=== PATIENT | male | born 1935 | race American Indian/Alaskan Native ===

== ENCOUNTER 2021-12-08 09:04 | Emergency (ER) | payer MEDICARE, OTHER ==
[~2021-12-08] VITALS: Ht 185.4 cm; Wt 89.4 kg
[~2021-12-08 09:04] MED LIST: ASPIRIN EC81 MG PO; LIPITOR40 MG PO; METOPROLOL SUCC50 MG PO; NORCO 5-325 TA1 EACH PO
[2021-12-08] MEDS ORDERED: MELOXICAM5 MG PO (09:24)
[2021-12-08] MEDS ORDERED: ATHLETIC FOOT C30 GM TOP (09:53)
== END 2021-12-08 10:07 | disposition home or self-care (01) ==
LOC: ED 09:04
DX: B35.3 Tinea pedis (principal); I10 Essential (primary) hypertension; Z79.82 Long term (current) use of aspirin; Z79.899 Other long term (current) drug therapy
CPT/HCPCS: 99282

== ENCOUNTER 2023-01-11 14:13 | Emergency (ER) | payer MEDICARE, OTHER ==
[~2023-01-11] VITALS: Ht 185.4 cm; Wt 89.4 kg
[~2023-01-11 14:13] MED LIST changes: +ATHLETIC FOOT C30 GM TOP; +MELOXICAM5 MG PO
[2023-01-11 14:42] LABS: BASOPHILS 0.1 % (0-2); EOSINOPHILS 0.7 % (0-6); HEMOGLOBIN 14.8 g/dL (12.0-18.0); LYMPHOCYTES 11.8 % (24-44); MCH 27.5 (27-36); MCHC 32.9 g/dl (30-36); MCV 83.6 fl (81-99); MONOCYTES 1.4 % (0-12); PLATELET COUNT 137 K/uL (140-440); RBC 5.38 M/ul (4.3-5.7); RDW 14.6 (10.5-15.0)
[2023-01-11 14:57] LABS: ALBUMIN 3.4 g/dL (3.4-5.0); ALBUMIN/GLOBULIN RATIO 0.92 (1.1-2.4); BILIRUBIN, TOTAL 1.9 ng/dL (0.2-1.0); BUN/CREATININE RATIO 18.85 (6.0-28.6); CALCIUM 9.1 mg/dL (8.5-10.1); CREATININE, SERUM 1.22 mg/dL (0.70-1.30); PROTEIN, TOTAL 7.1 g/dL (6.4-8.2)
[2023-01-11 15:05] LABS: LACTIC ACID, BLOOD 2.9 mmol/L (0.4-2.0)
[2023-01-11 15:09] LABS: BILIRUBIN, URINE NEGATIVE (negative); BLOOD/HGB, URINE SMALL (Negative); KETONE, URINE NEGATIVE (Negative); LEUK ESTERASE, URINE NEGATIVE (negative); NITRITE, URINE NEGATIVE (negative)
[2023-01-11] MEDS ORDERED: ENTRESTO 24 MG1 EACH PO (15:11)
[2023-01-11 15:17] LABS: BACTERIA, URINE RARE /hpf (negative); CRYSTALS, URINE NONE SEEN (0-1+); EPITHELIAL CELLS, URINE SQUAMOUS 1+ /lpf (0-1+); WHITE BLOOD CELLS, URINE 0-1 /HPF (0-5)
[2023-01-11 15:18] LABS: CASTS, URINE NONE SEEN \\lpf; COLLECTION TYPE, URINE CLEAN CATCH; REFLEX CULTURE, URINE No (No)
[2023-01-11 15:21] LABS: INFLUENZA B NAA NEGATIVE (NEGATIVE); RESPIRATORY SYNCYTIAL VIR NAA NEGATIVE (NEGATIVE)
[2023-01-11 20:09] VITALS: BP 96/57
--- NOTE | 2023-01-12 05:57 | EKG ---
[facility] [address] [facility] [place] [address] Signed Sinus rhythm with 1st degree AV block Nonspecific T wave abnormality Abnormal ECG When compared with ECG of 11-JAN-2023 14:20, (Unconfirmed) Nonspecific T wave abnormality now evident in Anterior leads Confirmed by JANEEN HAAS MD ([id number]) on 01/12/2023 5:57:41 AM Electronically Signed By: JANEEN HAAS 01/12/23 0557 PATIENT NAME: ERWIN HOROWITZ Electrocardiogram DATE OF : 39 PHYSICIAN: JANEEN HAAS REPORT #: [id number] REPORT IS CONFIDENTIAL AND NOT TO BE RELEASED WITHOUT AUTHORIZATION
== END 2023-01-11 19:48 | disposition short-term general hospital (02) ==
LOC: ED 14:13
PROVIDERS: Emergency Medicine
DX: A41.9 Sepsis, unspecified organism (principal); K83.09 Other cholangitis; J18.9 Pneumonia, unspecified organism; I10 Essential (primary) hypertension; Z79.82 Long term (current) use of aspirin; Z79.899 Other long term (current) drug therapy; Z20.822 Contact with and (suspected) exposure to COVID-19
CPT/HCPCS: 36415; 71045; 71260; 74177; 80053; 81001; 83605; 83690; 83880; 85025; 87502; 93005; 93010; J1170; J2405; J2543; J7030; Q9967; U0002

== ENCOUNTER 2023-05-15 16:24 | Emergency (ER) | payer MEDICARE, OTHER ==
[~2023-05-15] VITALS: Ht 185.4 cm; Wt 89.4 kg
[~2023-05-15 16:24] MED LIST changes: +ENTRESTO 24 MG1 EACH PO
[2023-05-15] MEDS ORDERED: PAXLOVID 150-11 EACH PO (17:20)
[2023-05-15 17:28] VITALS: BP 146/80
== END 2023-05-15 17:31 | disposition home or self-care (01) ==
LOC: ED 16:24
DX: U07.1 COVID-19 (principal); I10 Essential (primary) hypertension; E78.00 Pure hypercholesterolemia, unspecified; I25.2 Old myocardial infarction; Z79.82 Long term (current) use of aspirin; Z79.899 Other long term (current) drug therapy
CPT/HCPCS: 99284

== ENCOUNTER 2023-11-04 09:59 | Emergency (ER) | payer MEDICARE, OTHER ==
[~2023-11-04] VITALS: Ht 185.4 cm; Wt 84.4 kg
[~2023-11-04 09:59] MED LIST changes: +PAXLOVID 150-11 EACH PO
[2023-11-04 10:21] LABS: BASOPHILS 0.4 % (0-2); EOSINOPHILS 2.2 % (0-6); HEMATOCRIT 45.9 % (35.0-50.0); HEMOGLOBIN 15.3 g/dL (12.0-18.0); LYMPHOCYTES 22.9 % (24-44); MCH 28.7 (27-36); MCHC 33.3 g/dl (30-36); MCV 86.4 fl (81-99); NEUTROPHILS 65.5 % (39-80); PLATELET COUNT 140 K/uL (140-440); RBC 5.32 M/ul (4.3-5.7); RDW 15.7 (10.5-15.0)
[2023-11-04 10:35] LABS: INR 1.02 (0.80-1.30)
[2023-11-04 10:37] LABS: PARTIAL THROMBOPLASTIN TIME 26.6 Sec (22.9-41.3)
[2023-11-04 10:40] LABS: ALBUMIN 2.8 g/dL (3.4-5.0); ALBUMIN/GLOBULIN RATIO 0.8 (1.1-2.4); ANION GAP 11.5 (7-21); BILIRUBIN, TOTAL 0.8 ng/dL (0.2-1.0); BUN/CREATININE RATIO 11.27 (6.0-28.6); CALCIUM 8.5 mg/dL (8.5-10.1); CREATININE, SERUM 1.33 mg/dL (0.70-1.30); POTASSIUM 3.5 mmol/L (3.5-5.1); PROTEIN, TOTAL 6.3 g/dL (6.4-8.2)
[2023-11-04] MEDS ORDERED: ASPIRIN 325 MG TAB PO ONE (12:00)
[2023-11-04] MEDS ORDERED: CLOPIDOGREL BISULFATE 75 MG TAB PO ONE (12:00)
[2023-11-04] MEDS ORDERED: PLAVIX75 MG PO (12:34)
[2023-11-04 13:30] VITALS: BP 152/79
--- NOTE | 2023-11-04 17:42 | EKG ---
[facility] [address] [facility] [place] [address] Signed Normal sinus rhythm Nonspecific T wave abnormality Prolonged QT Abnormal ECG When compared with ECG of 11-JAN-2023 14:34, No significant change was found Confirmed by TIMOTHY SWAN MD ([id number]) on 11/04/2023 5:41:51 PM Electronically Signed By: TIMOTHY SWAN 11/04/23 174 PATIENT NAME: ERWIN HOROWITZ LONG Electrocardiogram DATE OF : 39 PHYSICIAN: TIMOTHY SWAN REPORT #: [id number] REPORT IS CONFIDENTIAL AND NOT TO BE RELEASED WITHOUT AUTHORIZATION
== END 2023-11-04 13:30 | disposition home or self-care (01) ==
LOC: ED 09:59
PROVIDERS: Emergency Medicine
DX: G45.9 Transient cerebral ischemic attack, unspecified (principal); I25.10 Atherosclerotic heart disease of native coronary artery without angina pectoris; I10 Essential (primary) hypertension; Z79.82 Long term (current) use of aspirin; Z79.899 Other long term (current) drug therapy; Z95.1 Presence of aortocoronary bypass graft
CPT/HCPCS: 36415; 70450; 70496; 70498; 71045; 80053; 85025; 85610; 85730; 93005; 93010; 99285-25; Q9967

== ENCOUNTER 2024-06-01 10:39 | Inpatient (IN) | payer MEDICARE, OTHER ==
[~2024-06-01] VITALS: Ht 185.4 cm; Wt 77.7 kg
[~2024-06-01 10:39] MED LIST changes: -ENTRESTO 24 MG1 EACH PO; +ENTRESTO 49 MG1 EACH PO; +PLAVIX75 MG PO
[2024-06-01] MEDS ORDERED: ondansetron HCL 4 MG/2 ML VIAL IV ONE (11:00)
[2024-06-01 11:07] LABS: BASOPHILS 0.2 % (0-2); EOSINOPHILS 0.3 % (0-6); HEMATOCRIT 41.7 % (35.0-50.0); LYMPHOCYTES 7.9 % (24-44); MCH 28.7 (27-36); MCHC 33.6 g/dl (30-36); MCV 85.7 fl (81-99); MONOCYTES 5.1 % (0-12); NEUTROPHILS 86.5 % (39-80); PLATELET COUNT 224 K/uL (140-440); RBC 4.87 M/ul (4.3-5.7); RDW 13.7 (10.5-15.0)
[2024-06-01 11:21] LABS: ALBUMIN 2.8 g/dL (3.4-5.0); ALBUMIN/GLOBULIN RATIO 0.8 (1.1-2.4); ANION GAP 11.3 (7-21); BILIRUBIN, TOTAL 0.8 ng/dL (0.2-1.0); BUN/CREATININE RATIO 17.88 (6.0-28.6); CALCIUM 8.8 mg/dL (8.5-10.1); CREATININE, SERUM 1.23 mg/dL (0.70-1.30); POTASSIUM 3.3 mmol/L (3.5-5.1); PROTEIN, TOTAL 6.3 g/dL (6.4-8.2)
[2024-06-01] MEDS ORDERED: SODIUM CHLORIDE 0.9% 1,000 ML IV SCH (11:45)
[2024-06-01 12:32] LABS: BILIRUBIN, URINE NEGATIVE (negative); BLOOD/HGB, URINE NEGATIVE (Negative); KETONE, URINE NEGATIVE (Negative); LEUK ESTERASE, URINE NEGATIVE (negative); NITRITE, URINE NEGATIVE (negative)
[2024-06-01] MEDS ORDERED: FAMOTIDINE 20 MG/ 2 ML VIAL IV ONE (14:30)
[2024-06-01] MEDS ORDERED: PIPERACILLIN/TAZOBACTAM 3.375 GM in DEXTROSE 5% 100 ML IV ONE (14:30)
[2024-06-01 15:51] VITALS: BP 143/64
[2024-06-01] MEDS ORDERED: HYDROmorphone HCL 1 MG/ML SYR IV PRN (16:15)
[2024-06-01] MEDS ORDERED: ondansetron HCL 4 MG/2 ML VIAL IV PRN ×2 (16:15→19:30)
[2024-06-01] MEDS ORDERED: DEXTROSE 5% - LACTATED RINGERS 1,000 ML IV SCH (16:15)
--- NOTE | 2024-06-01 16:38 | NUR ---
Transfer from ED. Patient transferred self into bed with minimal verbal cues. Vitals taken and recorded. LC Hernandez in room doing assessment. Family in room visiting. NPO sign hung on door.
--- NOTE | 2024-06-01 17:20 | NUR ---
THIS RN TO ER ROOM 5, VERBAL REPORT RECEIVED FROM ISAIAH Woodward RN AT 1538. THIS RN ESCORTS PT TO MED-SURG ROOM 111, ARRIVES AT 1551. VSS. PT AMBULATES FROM RNEY TO BED WITH SBA. PT ORIENTED TO ROOM, CALL LIGHT, TV AND PHONE. DAUGHTER, CAROL IN ROOM, NIVIA IN ROOM. ADMISSION ASSESSMENT COMPLETE. ADVANCED DIRECTIVE PROVIDED PER PT REQUEST. PT DENIES PAIN AT THIS TIME. SCDS IN PLACE TO BLE. LR INFUSING AT 125 ML/HR ORDERED. EDUCATION PROVIDED ON NPO STATUS. CALL LIGHT IN REACH, NO REQUESTS AT THIS TIME.
[2024-06-01 17:22] VITALS: BP 137/66
--- NOTE | 2024-06-01 19:20 | NUR ---
REPORT RECEIVED FROM LC TRIPP. pt RESTING IN BED AWAKE. DENIES PAIN AT THIS TIME. FAMILY IN ROOM. pt VERBALIZES UNDERSTANDING TO USE CALL LIGHT IF PAIN INCREASES OR FOR ADDITIONAL NEEDS. CALL LIGHT IN REACH. IV SITE ASSESSED, INFUSING WNL.
[2024-06-01] MEDS ORDERED: KETOROLAC TROMETHAMINE 15 MG/ML VIAL IV PRN (19:30)
[2024-06-01] MEDS ORDERED: MORPHINE SULFATE 10 MG/ML VIAL IV PRN (19:30)
[2024-06-01] MEDS ORDERED: LACTATED RINGER'S 1,000 ML IV SCH (19:30)
--- NOTE | 2024-06-01 19:46 | NUR ---
CALL LIGHT ANSWERED. PRN TORADOL ADMINISTERED FOR 5/10 REPORTED PAIN. IVF INFUSING WNL. CALL LIGHT IN REACH.
[2024-06-01] MEDS ORDERED: FAMOTIDINE 20 MG/ 2 ML VIAL IV SCH (21:00)
[2024-06-01] MEDS ORDERED: PIPERACILLIN/TAZOBACTAM 3.375 GM VIAL ONE ×2 (21:37→21:38)
[2024-06-01 21:52] VITALS: BP 125/64
[2024-06-01] MEDS ORDERED: PIPERACILLIN/TAZOBACTAM 3.375 GM in DEXTROSE 5% 100 ML IV SCH (22:00)
--- NOTE | 2024-06-01 22:00 | NUR ---
pt AWAKE RESTING ON LEFT SIDE. DENIES PAIN. IV SITE FLUSHED, IV ANTIBIOTIC INFUSING WNL ORDERED. ASSESSMENT COMPLETE. pt DENIES TOILETING NEEDS. BED ALARM ON. CALL LIGHT IN REACH.
[2024-06-01 22:50] VITALS: BP 125/64
[2024-06-02] VITALS (11 sets, daily range): BP systolic 120–166; BP diastolic 66–89
--- NOTE | 2024-06-02 00:20 | NUR ---
CHECKED ON Pt. RESTING IN BED WITH EYES CLOSED, BREATHING UNLABORED. NO DISTRESS NOTED. BED ALARM ON.
--- NOTE | 2024-06-02 02:18 | NUR ---
IV PUMP ALARMING. IV ANTIBIOTIC INFUSION COMPLETE. IVF INFUSING WNL. SBA WITH FWW TO RESTROOM FOR VOID AND TO BRUSH TEETH. pt BACK TO BED. VSS. ASSESSMENT COMPLETE. pt DENIES ABDOMINAL PAIN, DENIES NAUSEA. PAIN IN RIGHT KNEE AND HIP WITH AMBULATION. pt NORMALLY USES "HEMPVANA CREAM". DENIES NEEDS. CALL LIGHT IN REACH. BED ALARM ON.
--- NOTE | 2024-06-02 04:35 | NUR ---
CHECKED ON pt. RESTING IN BED WITH EYES CLOSED. BED ALARM ON. NO DISTRESS NOTED.
[2024-06-02 05:23] LABS: BASOPHILS 0.4 % (0-2); EOSINOPHILS 1.7 % (0-6); HEMATOCRIT 36.8 % (35.0-50.0); HEMOGLOBIN 12.3 g/dL (12.0-18.0); MCH 28.5 (27-36); MCHC 33.3 g/dl (30-36); MCV 85.5 fl (81-99); MONOCYTES 7.8 % (0-12); NEUTROPHILS 80.1 % (39-80); PLATELET COUNT 176 K/uL (140-440); RDW 13.7 (10.5-15.0)
[2024-06-02 05:41] LABS: ALBUMIN 2.2 g/dL (3.4-5.0); ALBUMIN/GLOBULIN RATIO 0.79 (1.1-2.4); ANION GAP 6.5 (7-21); BILIRUBIN, TOTAL 0.6 ng/dL (0.2-1.0); BUN/CREATININE RATIO 17.6 (6.0-28.6); CALCIUM 8.2 mg/dL (8.5-10.1); CREATININE, SERUM 1.25 mg/dL (0.70-1.30); POTASSIUM 3.5 mmol/L (3.5-5.1)
--- NOTE | 2024-06-02 06:03 | NUR ---
pt AWAKENS TO VOICE. VSS. IV ANTIBIOTIC INFUSING WNL. pt DENIES PAIN. DENIES TOILETING NEEDS. CALL LIGHT IN REACH.
--- NOTE | 2024-06-02 07:20 | NUR ---
REPORT RECEIVED FROM PEST CONTROLLER RN. PATIENT RESTING IN BED LAYING ON HIS LEFT SIDE. IV ABX AND FLUIDS INFUSING WITH NO ISSUES OR CONCERNS. IV SITE WNL. PATIENT DENIES ANY NEEDS AT THIS TIME. CALL LIGHT WITHIN REACH.
--- NOTE | 2024-06-02 08:45 | NUR ---
PATIENT RESTING IN BED. IV FLUIDS RUNNING WITH NO ISSUES OR CONCERNS, IV SITE REMAINS WNL. PATIENT DENIES ANY PAIN AT THIS TIME. HYPO ACTIVE BOWEL TONES TO BILATERAL UPPER QUADRANTS, ACTIVE BOWEL TONES TO BILATERAL LOWER QUADRANTS. ABD SOFT NON TENDER. PATIENT DENIES ANY NAUSEA AT THIS TIME. AM MEICATIONS ADMINSTERED. DENIES ANY FURTHER NEEDS AT THIS TIME. CALL LIGHT WITHIN REACH.
[2024-06-02] MEDS ORDERED: ETOMIDATE 40 MG/20 ML VIAL ONE (08:48)
[2024-06-02] MEDS ORDERED: SUGAMMADEX SODIUM 200 MG/2 ML ML ONE (08:55)
[2024-06-02] MEDS ORDERED: ondansetron HCL 4 MG/2 ML VIAL ONE (08:55)
[2024-06-02] MEDS ORDERED: DEXAMETHASONE SOD PHOS 4 MG/ML VIAL ONE ×3 (08:55→13:02)
[2024-06-02] MEDS ORDERED: METOCLOPRAMIDE HCL 10 MG/2 ML SDV ONE (08:55)
[2024-06-02] MEDS ORDERED: ROCURONIUM BROMIDE 50 MG/5 ML SYR ONE ×2 (08:55→11:35)
[2024-06-02] MEDS ORDERED: LACTATED RINGER'S 1,000 ML IV ONE ×2 (08:55→12:49)
[2024-06-02] MEDS ORDERED: propofoL 200 MG/20 ML VIAL ONE ×2 (08:55→12:41)
[2024-06-02] MEDS ORDERED: SUCCINYLCHOLINE IN 0.9% NACL 200 MG/10 ML SYRINGE ONE (08:55)
[2024-06-02] MEDS ORDERED: fentaNYL citrate 100 MCG/2 ML VIAL ONE (08:55)
[2024-06-02] MEDS ORDERED: KETOROLAC TROMETHAMINE 30 MG/ML VIAL ONE (08:55)
[2024-06-02] MEDS ORDERED: FAMOTIDINE 20 MG/ 2 ML VIAL ONE (08:55)
[2024-06-02] MEDS ORDERED: LIDOCAINE HCL 4% 5 ML AMP ONE (08:55)
[2024-06-02] MEDS ORDERED: FAMOTIDINE 20 MG/ 2 ML VIAL IV SCH (09:00)
--- NOTE | 2024-06-02 09:00 | NUR ---
PATIENT AND I WALKED TO HIS BATHROOM. PATIENT USED HIS WALKER. PATIENT SET DOWN ON THE SHOWER CHAIR WHILE I DID HIS SURGICAL WIPE DOWN. NEW GOWN AND SOCKS. ALSO HE DID HIS BRUNA CARE. AND BRUSHED HIS TEETH. WASHED HIS FACE EALIER. PUT SCDS ON. ALSO THE NURSE BROUGHT HIM THREE WARM BLANKETS PUT THEM ON PATIENT. FAMILY IN ROOM. NURSE DID BED LINENS CHANGE.
[2024-06-02] MEDS ORDERED: NALOXONE HCL 0.4 MG SYR IV PRN (09:15)
[2024-06-02] MEDS ORDERED: PROCHLORPERAZINE EDISYLATE 10 MG/2 ML VIAL IV PRN (09:15)
[2024-06-02] MEDS ORDERED: ondansetron HCL 4 MG/2 ML VIAL IV PRN (09:15)
[2024-06-02] MEDS ORDERED: fentaNYL citrate 50 MCG/ML SDV IV PRN (09:15)
[2024-06-02] MEDS ORDERED: METOCLOPRAMIDE HCL 10 MG/2 ML SDV IV PRN (09:15)
[2024-06-02] MEDS ORDERED: MORPHINE SULFATE 10 MG/ML VIAL IV PRN (09:15)
[2024-06-02] MEDS ORDERED: IBLOOD GLUCOSE TEST STRIP 1 EA TEST VI PRN (09:15)
[2024-06-02] MEDS ORDERED: droPERidol 5 MG/2 ML VIAL IV PRN (09:15)
--- NOTE | 2024-06-02 09:21 | NUR ---
PATIENT RESTING IN BED WITH FAMILY AT BEDSIDE. CASE MANAGMENT IS IN ROOM WITH PATIENT AT THIS TIME. PRE SURGERY CHECK LIST COMPLETED. PATIENT IV SITE WNL, ABX INFUSING WNL. NO FURTHER NEEDS CALL LIGHT WITHIN REACH.
--- NOTE | 2024-06-02 09:30 | NUR ---
Spoke with pt, daughters, and granddaughter. Pt lives in a house attached to [facility]. He has a cane and walker, but does not use most of the time. Pt does not drive and family transport him. He has a walk in shower. He has 1 step into his home. He denies any needs. Will go to surgery today. Family deny pt needs any dme, they do request enter a note stating a need for a lift chair. Pt has one which is broken. Family feel if there is a note, his pcp will write an RX. I texted Dr. Cruz and requested he enter a note if he agrees. Pt would like to go home on dc. He does not have financial issues.
--- NOTE | 2024-06-02 09:38 | NUR ---
UR CLINICAL REVIEW: 2 MN VIVIAN, MEETS INPT FOR DIVERICULITIS WITH PERFORATION MEDICARE INPT 06/01/24 @ 1435 ORDER MATCHES REG NO AUTH REQUIRED PER MEDICARE RULES PLAN TO DC TO HOME WHEN STABLE.
--- NOTE | 2024-06-02 09:42 | NUR ---
VISITED DURING SPIRITUAL CARE ROUNDS. PT SUPPORTED BY FAMILY IN ROOM. REQUESTED DRYING TUMBLER OPERATOR VISIT TOMORROW. UNDERGROUND ELECTRICIAN WILL RELAY REQUEST. NO OTHER IMMEDIATE NEEDS. UNDERGROUND ELECTRICIAN PROVIDED SUPPORTIVE PRESENCE, HOSPTIALTIY, PRAYER, EXPLORED HARRY PRACTICES, FACILITATED INTERACTION WITH THERAPY ANIMAL. PT AND FAMILY EXPRESSED GRATITUDE, HOPE.
[2024-06-02] MEDS ORDERED: TRIAMCINOLONE A15 G1 TOP (09:59)
[2024-06-02] MEDS ORDERED: BIOTENE PBF473 ML MM (10:00)
--- NOTE | 2024-06-02 10:07 | NUR ---
OR NURSE ON UNIT TO TAKE PATIENT TO SURGERY VIA BED.
[2024-06-02] MEDS ORDERED: DIGOXIN 500 MCG/2 ML AMP ONE (11:18)
[2024-06-02] MEDS ORDERED: HYDROCORTISONE SOD SUCCINATE 100 MG/2 ML VIAL ONE (11:18)
[2024-06-02] MEDS ORDERED: SODIUM CHLORIDE 0.9% 20 ML IV ONE ×2 (13:01)
[2024-06-02] MEDS ORDERED: Ropivacaine HCl 0.5% 30 ML VIAL ONE ×2 (13:01)
--- NOTE | 2024-06-02 14:47 | NUR ---
06/02/24 1447 Myra Hatfield 1339- PT ARRIVES TO THE PACU WITH AN ORAL AIRWAY IN PLACE ON 6L OF O2 VIA MASK. JAW THRUST NEEDED OFF AND ON TO MAINTAIN AIRWAY. NG TUBE IN PLACE. ABDOMEN IS SOFT AND NON DISTENDED. SMALL AMOUNT OF DRAINAGE NOTED ON THE INCISION THAT WAS THE OPEN SITE, BOTH LAP SITES ARE CDI. PT IS NONREACTIVE TO TACTILE AND VERBAL STIMULI. WILL CONTINUETO MONITOR. 1342- JAW THRUST NO LONGER NEEDED AND HEAD READJUSTED. BREATHING IS EVEN AND UNLABORED. PT IS NON REACTIVE TO VERBAL AND TACTILE STIMULI. PT SHOWS SOME SIGNS OF FACIAL GRIMACING.
--- NOTE | 2024-06-02 14:55 | NUR ---
PATIENT RETURNED FROM PACU VIA UNIT BED. REPORT RECEIVED FROM SHOCHET. PATIENT LAYING ON RIGHT SIDE. LANDERS CATHERTER IN PLACE DRAINING YELLOW URINE. NGT IN PLACE AND HOOKED UP TO LOW INT SUCTION. NOTED BROWN/RED COLORED DRAINAGE FROM NGT. PATIENT WITH INCREASED CONFUSSION AT THIS TIME. 1:1 AT BEDSIDE. PATIENT PULING AT CATHERTER STATING, " I NEED TO PISS." PATIENT REORIENTED TO CATHERTER. VSS. CPOX IN PLACE WITH READINGS AT 90% ON 2L OXYGEN ON VIA NC. NOTED SURGICAL DRESSINGS TO MIDLINE AND LAP SITES X 2 TO UPPER AND LOWER ABDOMEN. NO BOWEL TONES AT THIS TIME. VETERINARY LABORATORY DIAGNOSTICIAN STAFF AT BEDSIDE WITH PATIENT.
--- NOTE | 2024-06-02 15:27 | NUR ---
PATIENT C/O PAIN. PRN ADMINSTERED. PATIENT REMAINS CONFUSED AT TIMES. NO FURTHER NEEDS CALL LIGHT WITHIN REACH, BED ALARM ON. FAMILY AT BEDSIDE.
--- NOTE | 2024-06-02 16:33 | NUR ---
PATIENT RESTING IN BED. DRESSING TO MIDLINE ABD REMAINS CDI. SMALL AMOUNT FO SHADOWING NOTED TO LOWER ASPECT OF DRESSING. NGT REMAINS IN PLACE AND WNL, LANDERS CATH IN PLACE AND WNL. SA02 AT 93% ON 2L NC. PATIENT REPORTS PAIN 4/10 AT THIS TIME. PATIENT IS MORE AWAKE AND ANSWERS QUESTIONS APPROPIATLY AT THIS TIME. FAMILY AT BEDSIDE. CALL LIGHT WITHIN REACH. BED ALARM ON.
--- NOTE | 2024-06-02 17:30 | NUR ---
PATIENT RESTING IN BED WITH EYES CLOSED. DRESSING TO MIDLINE INCISION REMAINS CDI WITH SAME SHADOWING PRIOR. PATIENT WITH NO REPORTS OF PAIN AT THIS TIME. NGT REMAINS WNL, IVF INFUSING WNL. LANDERS CATHERTER DRAINING AND IS WNL. NO FURTHER NEEDS AT THIS TIME. FAMLIY REMAINS AT BEDSIDE. CALL LIGHT WITHIN REACH. BED ALARM ON.
--- NOTE | 2024-06-02 18:30 | NUR ---
PATIENT C/O PAIN. PRN ADMINSTERED.
--- NOTE | 2024-06-02 19:36 | NUR ---
RECEIVED REPORT FROM LC PLASENCIA. PT RESTING IN BED, ATTENTIVE FAMILY AT BEDSIDE. NGT TO RIGHT NARE TO MIWS, MIDLINE ABD DRSG AND 2 LAP SITES W/ SOME DRNG. PT DENIES NEEDS OR CONCERNS AT THIS TIME.
--- NOTE | 2024-06-02 20:34 | NUR ---
RECREATIONAL THERAPY TECHNICIAN OBTAINED VITALS AND OUTPUT. PT STATES NO NEEDS AT THIS TIME. CALL LIGHT WITHIN REACH.
--- NOTE | 2024-06-02 21:08 | NUR ---
LOG COOKER PREFORMED LANDERS CARE AND BRUNA CARE. PT STATES NO FURTHER NEEDS AT THIS TIME. CALL LIGHT WITHIN REACH AND FAMILY IN ROOM.
--- NOTE | 2024-06-02 22:00 | NUR ---
PT SLEEPING ON RIGHT SIDE. DTR ASLEEP AT BEDSIDE. IV ATB STARTED PER EMAR. BED ALARM IN PLACE.
--- NOTE | 2024-06-02 22:25 | NUR ---
PT RESTING COMFORTABLY. VSS. DENIES PAIN. ORIENTED X 3, NOT TO PLACE. REORIENTED EASILY. DTR AT BEDSIDE, SUPPORTIVE. LSC. 2L O2 IN PLACE, CPOX ON. HRR. BT HYPO. ABD SOFT, MILDLY DISTENDED, NON-TENDER. REPORTS PASSING FLATUS POST-OP. LEFT NARE NGT TO MIWS-DARK BROWN OUPUT IN SMALL AMT. NPO. MIDLINE ABD INC W/ SMALL AMT BLOODY DRNG, 2 ABD LAP SITES W/ SHADOWING. SCD'S IN PLACE. LANDERS W/ CLEAR CHANA URINE. RFA IV W/ LR INFUSING PER EMAR. ORAL CARE PROVIDED, DTR APPLIED CHAPMIRTA. CALL LIGHT WITHIN REACH. CALL LIGHT WITHIN REACH.
--- NOTE | 2024-06-02 23:48 | NUR ---
PTS DTR CALLED FOR HELP MANAGING PT TUBES AND LINES. PT SLEEPING ON RIGHT SIDE AND NEEDED LINES UNTANGLES. NGT REATTACHED TO GOWN. O2 IN PLACE. IVF INFUSING. DENIES PAIN. NO OTHER NEEDS AT THIS TIME.
[2024-06-03] VITALS (11 sets, daily range): BP systolic 130–165; BP diastolic 56–92
--- NOTE | 2024-06-03 02:18 | NUR ---
PT SLEEPING SOUNDLY, APPEARS COMFORTABLE.
--- NOTE | 2024-06-03 03:02 | NUR ---
PTS DTR CALLED TO REPORT PT PULLED OUT TUBE. UPON ENTERING ROOM, NOTED PT'S NG TUBE OUT. DARK BROWN/GREEN OUTPUT, 25cc. PT STATED IT WAS HURTING HIS NOSE SO HE TOOK IT OUT. DR. Parham NOTIFIED, OK TO LEAVE TUBE OUT.
--- NOTE | 2024-06-03 04:27 | NUR ---
PT SLEEPING SOUNDLY. APPEARS COMFORTABLE. DTR ASLEEP AT BEDSIDE.
--- NOTE | 2024-06-03 05:56 | NUR ---
PT AWAKE. DENIES PAIN. BT REMAIN HYPO. ABD MILDLY DISTENDED, NON-TENDER. DENIES NAUSEA. NPO. IV ATB STARTED PER EMAR. DTR AT BEDSIDE, ATTENTIVE.
--- NOTE | 2024-06-03 06:39 | NUR ---
UO ONLY 200cc/[address] Parham NOTIFIED. LR BOLUS ORD.
[2024-06-03] MEDS ORDERED: LACTATED RINGER'S 500 ML IV ONE ×3 (07:00→19:00)
--- NOTE | 2024-06-03 07:30 | NUR ---
REPORT RECEIVED FROM BRICK SIDING APPLICATOR RN. PATIENT RESTING IN BED AWAKE WITH DAUGHTER AT BEDSIDE. SECOND RN SKIN CHECK WITH BRICK SIDING APPLICATOR RN. DRESSING TO MIDLINE INCISION REMAINS CDI WITH NO NEW DRAINAGE AT THIS TIME. LANDERS CATHERTER DRAINAING YELLOW URINE. IV SITE REMAINS WNL. DENIES ANY NEEDS AT THIS TIME. CALL LIGHT WITHIN REACH.
--- NOTE | 2024-06-03 08:55 | NUR ---
RELAYED REQUEST FOR VISIT TO [facility] VIA NOT IN SACRISTRY USUAL.
--- NOTE | 2024-06-03 09:30 | NUR ---
PATIENT RESTING IN BED WITH FAMILY AT BEDSIDE, AM MEDICATIONS ADMINSTERED. PRN PAIN MEDICATION GIVEN. PATIENT ASSISTED OOB WITH 1 PA ASSIST AND FWW. PATIENT AMBULATED WELL IN HALLWAY. REPORTS PAIN IS TOLLERABLE. DENIES NAUSEA. DENIES PASSING GAS AT THIS TIME. BOWEL TONES ACITVE X 4 QUADRANTS. URINE OUTPUT 100MLS POST 500ML BOLUS. DRESSING TO MIDLINE INCISION REMAINS INTACT WITH NO NEW DRAINAGE NOTED. PATIENT RESTING IN RECLINER AT THIS TIME. CASE MANAGMENT WITH PATIENT. CALL LIGHT WITHIN REACH.
--- NOTE | 2024-06-03 09:32 | NUR ---
PT NOT AVAILABLE FOR VISIT. PROVIDED PRAYER.
--- NOTE | 2024-06-03 09:42 | NUR ---
PT NOT AVAILABLE FOR VISIT. PRIMARILY VISITED WITH SON IN HALLWAY. NO IMMEDIATE NEEDS. FINISHED GARMENT INSPECTOR PROVIDED SUPPORTIVE PRESENCE, HOSPITALITY, PRAYER. SON EXPRESSED GRATITUDE, HOPE.
--- NOTE | 2024-06-03 10:17 | EKG ---
[facility] [address] [facility] [place] [address] Signed Normal sinus rhythm with sinus arrhythmia Left anterior fascicular block T wave abnormality, consider anterior ischemia Prolonged QT Abnormal ECG When compared with ECG of 04-NOV-2023 10:40, No significant change was found Confirmed by Tao Tran DO ([id number]) on 06/03/2024 10:17:02 AM Electronically Signed By: TAO TRAN DO 06/03/24 1017 PATIENT NAME: ERWIN HOROWITZ LONG Electrocardiogram DATE OF : 39 PHYSICIAN: TAO TRAN DO REPORT #: [id number] REPORT IS CONFIDENTIAL AND NOT TO BE RELEASED WITHOUT AUTHORIZATION
[2024-06-03] MEDS ORDERED: REFRESH PLUS1 EACH OU (10:27)
--- NOTE | 2024-06-03 10:27 | NUR ---
MED REC COMPLETE
--- NOTE | 2024-06-03 10:50 | NUR ---
Spoke with pt and his daughters. He is doing well. He denies needs. Daughters ask about note from Dr. Cruz for lift chair. Let them know he notified me he would complete this. Im letter completed at 6733.
--- NOTE | 2024-06-03 10:57 | NUR ---
PT SITTING UP IN CHAIR, DAUGHTERS PRESENT AT CHAIRSIDE. IV ABX COMPLETED AT THIS TIME. MD INFORMED OF UOP, ORDERS TO BE PLACED. PT/OT ORDERS INPUT FOR EVALUATON FOR DISCHARGE NEEDS, AGREED. PRIMARY RN UPDATED AND AGREES.
--- NOTE | 2024-06-03 11:22 | OR ---
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 PROCEDURES: 1. Laparoscopy with identification of inflammatory segment of proximal small bowel. 2. Conversion to laparotomy with segmental small bowel resection and end-to-end enteroenterostomy. ANESTHESIA: General endotracheal, Pk Snyder CRNA and Anish Dillon CRNA and postoperative bilateral TAP blocks. UAT TESTER: Mana Kerr RN. INDICATION: This 88-year-old man presented to the emergency room yesterday afternoon, was evaluated by Dr. Anne with persistent epigastric and mid abdominal pain. A CT scan was performed, which showed localized free air in the segment of small bowel which was markedly inflamed as was the mesentery. The patient had symptoms for several days. His white count was 15,000. He did not have generalized free air. Inspection of the CT scan did confirm probable jejunal diverticular perforation with inflammatory changes. He was admitted to the hospital, given intravenous antibiotic piperacillin and fluid resuscitated. Though his white count has decreased to 10 he has persistent tenderness and high probability of persistent problems for which operative intervention is recommended. A plan for laparoscopy with peritoneal lavage is appropriate, identification of affected bowel, and possible remedy to include resection was reviewed with the patient and his family. They do understand that converting to open laparotomy may be required depending on operative findings. Understanding the risk of bleeding, infection, need for open procedure, need for bowel resection and other unforeseen complications particularly given his advanced age, they wished to proceed. Electronically Signed By: PK PALENCIA MD 06/03/24 1122 PATIENT NAME: ERWIN HOROWITZ OPERATIVE REPORT DATE OF : 39 REPORT #: [id number] PHYSICIAN: PK PALENCIA MD PCP: MARY AUGUSTINE PAC REPORT IS CONFIDENTIAL AND NOT TO BE RELEASED WITHOUT AUTHORIZATION [facility] [address] [place], [place] [address] Signed FINDINGS: Laparoscopy identified most of the abdomen to be noninflamed. In the left upper quadrant dominantly there was inflammatory change for which a segment of inflamed bowel was easily identified, but could not be mobilized more fully. A mini-laparotomy with manipulation of that segment of bowel still did not provide for mobilization of the affected bowel and markedly thickened and palpably abnormal mesentery to this segment was identified requiring extension of the laparotomy cephalad. Ultimately, a segment of proximal jejunum was found densely adherent to the abdominal wall, which was peeled away and allowed for explantation of the bowel. The affected segment was approximately 8 inches from the ligament of Treitz. Segmental small bowel resection was undertaken and reanastomosed with hand sewn end to end enteroenterostomy. The offending pathology was likely a perforated jejunal diverticulum as there were more than one in the same area. A completely viable and patent enteroenterostomy has been accomplished. DESCRIPTION OF PROCEDURE: The patient was brought to the operating room, given a general endotracheal anesthetic. Piperacillin antibiotic was administered intraoperatively at that time. Sequential compression device stockings were used. A Singh catheter was placed. The abdomen was clipped and prepared with chlorhexidine solution and draped sterilely. Notable was an infraumbilical incision extending to the symphysis pubis from a distant prostatectomy as well as laparoscopic scars from prior cholecystectomy. An infraumbilical incision was made and using an open Jones cannula technique pneumoperitoneum was achieved to a level of 14 mmHg of carbon dioxide gas. Intra-abdominal inspection showed no sign of generalized peritonitis. There were a few segments of bowel in the left upper quadrant that were inflamed. With various manipulations, the transition of the duodenum to jejunum (ligament of Treitz) could be identified. The bowel was run from that point, though it was somewhat difficult initially and then later relatively easy and examining all the bowel down to the terminal ileum as manifest by the antimesenteric fat pad of Treves. The small bowel was run in a retrograde fashion from the ligament of Treitz once again more proximally and in the left upper quadrant an area of inflammation which was tethered to the retroperitoneum and lateral abdominal wall was identified. It could not be better characterized than this. The area was gently grasped with a laparoscopic grasper and the infraumbilical incision extended to above the umbilicus under direct visualization. Intra-abdominal palpation revealed the segment of bowel that was affected to be quite densely thickened in the mesentery and adherent to the left abdominal wall and portions of retroperitoneum. Various manipulations were undertaken to withdraw the bowel through this very small incision to preserve a minimally invasive approach, however, it simply was not forthcoming and given the extent of inflammation and thickening and so forth, a Electronically Signed By: PK PALENCIA MD 06/03/24 1122 PATIENT NAME: ERWIN HOROWITZ OPERATIVE REPORT DATE OF : 39 REPORT #: [id number] PHYSICIAN: PK PALENCIA MD PCP: SIEDERS,MARY PAC REPORT IS CONFIDENTIAL AND NOT TO BE RELEASED WITHOUT AUTHORIZATION [facility] [address] [place], [place] [address] Signed more formal laparotomy was required. The incision was extended cephalad which did allow for better examination. The proximal small bowel (jejunum) emanating from the area of the ligament of Treitz was free completely for about 6-8 inches at which point, a dense firm mass associated with the small bowel was noted and markedly thickened mesentery corresponding to this. Further inspection showed it to be densely adherent to the abdominal wall. This was freed with electrocautery and blunt dissection ultimately allowing for that segment of bowel to be completely detached and no longer encumbered. It was then withdrawn from the abdomen and inspected. There appeared to be large mesenteric sided diverticula and one in particular, which clearly had recent perforation with fibrinopurulent exudate and thickening of the small bowel in the area. The bowel proximal to this process was completely viable as was that distal to it. The most prudent course was to allow for resection of the affected segment. The bowel now externally located was carefully inspected and the mesentery corresponding to the affected area incised with electrocautery. Sequential application of hemostats allowed for security of the mesenteric blood vessels. They were secured with 0 silk ties after division. The viable areas easily demarcated proximally and distally and was transected with an 80 mm OLIVIER stapling device. The specimen was passed for pathology after photographs were taken with the laparoscopic equipment. Given the relatively short distance to the ligament of Treitz, the most appropriate anastomosis was deemed to be an end-to-end hand-sewn anastomosis. This was undertaken in a two-layer technique of interrupted 3-0 Vicryl for the mucosal layer and interrupted 3-0 silk suture in the serosal layer. Mesenteric defect was secured with interrupted 3-0 silk as well. Both proximal and distal ends were completely viable and the anastomosis widely patent. The bowel was returned to the abdominal cavity and irrigation was undertaken with warm saline. The omentum was used to cover the intra-abdominal viscera and plans made for closure. The midline fascia was reapproximated with running bidirectional #1 PDS suture. Subcutaneous tissue was assured for hemostasis with electrocautery. The skin was closed with running subcuticular 3-0 Vicryl. An epigastric port and left abdominal 5 mm port previously placed were inspected and found to be hemostatic and the midline laparotomy closed with number one PDS suture in a bidirectional fashion. Steri strips were applied to the skin and an acticoat silver dressing applied to the wounds as well. The patient was then positioned for TAP blocks which were performed bilaterally by the auditor tax. The patient was ultimately extubated and transferred to the recovery room in good condition having suffered no complications. Sponge, needle, and instrument counts were reported as correct x3. Electronically Signed By: PK PALENCIA MD 06/03/24 1122 PATIENT NAME: ERWIN HOROWITZ OPERATIVE REPORT DATE OF : 39 REPORT #: [id number] PHYSICIAN: PK PALENCIA MD PCP: MARY AUGUSTINE PAC REPORT IS CONFIDENTIAL AND NOT TO BE RELEASED WITHOUT AUTHORIZATION [address] [address] Signed Blood loss was minimal. Pk Palencia MD JM/MODL /[id number] cc: MD Mary Tavarez Copies: SONYA ANNE MD, ELIZABETH PAC ~ Electronically Signed By: PK PALENCIA MD 06/03/24 1122 PATIENT NAME: ERWIN HOROWITZ OPERATIVE REPORT DATE OF : 39 REPORT #: [id number] PHYSICIAN: PK PALENCIA MD PCP: MARY AUGUSTINE PAC REPORT IS CONFIDENTIAL AND NOT TO BE RELEASED WITHOUT AUTHORIZATION
--- NOTE | 2024-06-03 11:22 | HP ---
[facility] [address], [place] [address] Signed ADMISSION DATE: 06/01/2024 REASON FOR ADMISSION: Abdominal pain and possible localized perforation of small bowel diverticulum. HISTORY OF PRESENT ILLNESS: This 88-year-old white man presents to the emergency room having had over a week of ongoing vague abdominal pain worsened after eating. The patient has had decreased oral intake due to the recurrent pain. His pain is worse with solid food as is noted. He has had nausea and vomiting in the past week, but none on the day of presentation. He has had occasional diarrhea as well. He has had no hematemesis or blood per rectum. He was evaluated by Dr. Green in the emergency room, found to have an elevated white count of 15,600. Other lab studies normal. The creatinine slightly elevated at 1.23. A CT scan of the abdomen is performed showing wall thickening involving the segment of small bowel coursing through the left mid abdomen and adjacent mesenteric haziness an extraluminal gas consistent with localized perforation. Small bowel diverticulitis was considered likely. He has had imaging studies in the past that has shown small bowel diverticula according to the radiologist. The patient does have volume loss and some level of consolidation in the left lower lobe, but no symptoms related to this. This past summer, he presented to the emergency room with low-grade sepsis and history of cholecystectomy apparently elsewhere and a common bile duct stone and was transferred elsewhere for MRCP and ultimately ERCP with stone extraction. The patient was admitted to the hospital at my request anticipating further evaluation and treatment. PAST SURGICAL HISTORY: Includes coronary artery bypass in 1994, cervical spinal operation, bilateral shoulder operation and right hip replacement as well as cholecystectomy and subsequent ERCP papillotomy (presumed). The patient takes aspirin 81 mg a day, Lipitor 40 mg daily and one tablet p.o. b.i.d. The patient was previously on Plavix, though he says he is not on it anymore, was on it for 21 days related to a "stroke." SOCIAL HISTORY: The patient lives alone, but his daughter lives in adjacent residence. He is accompanied by a number of children and at least two grandchildren at this time. He lives in [place]. Electronically Signed By: PK PALENCIA MD 06/03/24 1122 PATIENT NAME: ERWIN HOROWITZ HISTORY AND PHYSICAL DATE OF : 39 REPORT #: [id number] PHYSICIAN: PK PALENCIA MD PCP: JOSEE AUGUSTINE PAC REPORT IS CONFIDENTIAL AND NOT TO BE RELEASED WITHOUT AUTHORIZATION [facility] [address], [place] [address] Signed REVIEW OF SYSTEMS: He denies any chest pain at this time. He has had some exertional chest pain in the past. He denies any hematemesis or blood per rectum. His pain since admission is really no different, not worsened and not improved. The patient was placed on piperacillin at admission. PHYSICAL EXAMINATION: GENERAL: Pleasant man, who is not systemically toxic. Height is 6 feet 1 inch, weight 77.7 kg, BMI 22.6. HEENT: Trachea is midline. CHEST: Shows some end-inspiratory wheeze, which is not constant. ABDOMEN: Nondistended. There is tenderness in the mid abdomen below the umbilicus. There is no ascites. EXTREMITIES: Show no clubbing, cyanosis, or edema. LAB STUDIES: Noted included white count of 15.6, hematocrit 41.7, platelets 224,000. Chem profile normal except for potassium low at 3.3, creatinine 1.23. Liver enzymes are normal. Alkaline phosphatase 84, lipase is 12. Urinalysis is negative. A CT scan was reviewed in detail showing what appears to be somewhat elevated left hemidiaphragm by distinguishing that from consolidation of left lower lobe was uncertain to me at this time and an area in the left mid abdomen with inflammatory change at the root of the mesentery associated with small bowel loops. There is no sign of generalized free air and no well-formed abscess. Additionally, there is a cystic lesion of the right lobe of the liver and a cystic lesion in the region of the left lateral segment of the liver, which to my examination is uncertain as regards his location in relation to the pancreas and would have some appearance of a pancreatic pseudocyst but most likley represents a left lateral segment of liver simple cyst. I will reviewe that with the radiologist. ASSESSMENT: The patient is considered likely to have a localized perforation of small bowel with mesenteric thickening and a localized amount of free intraperitoneal air. He does not have generalized peritonitis or generalized free air. He has been started on piperacillin antibiotic, which is appropriate. I would recommend continued hospitalization, observation and if not markedly improved, consideration will be made for laparoscopy to better characterize the CT scan findings and provide definitive treatment as appropriate. This might include segmental bowel resection, drainage, or some other intervention. Electronically Signed By: PK PALENCIA MD 06/03/24 1122 PATIENT NAME: ERWIN HOROWITZ HISTORY AND PHYSICAL DATE OF : 39 REPORT #: [id number] PHYSICIAN: PK PALENCIA MD PCP: JOSEE AUGUSTINE PAC REPORT IS CONFIDENTIAL AND NOT TO BE RELEASED WITHOUT AUTHORIZATION [facility] [address] [place], [place] [address] Signed As the patient has had protracted symptoms for over a week and does not appear systemically toxic at this time, I think it is reasonable to proceed with this approach. I discussed this with the patient and his family who are in agreement. MD NICKY Redman/DEEPAK /[id number] cc: Brendan Green MD Copies: BRENDAN GREEN MD ~ Electronically Signed By: PK PALENCIA MD 06/03/24 1122 PATIENT NAME: ERWIN HOROWITZ HISTORY AND PHYSICAL DATE OF : 39 REPORT #: [id number] PHYSICIAN: PK PALENCIA MD PCP: JOSEE AUGUSTINE PAC REPORT IS CONFIDENTIAL AND NOT TO BE RELEASED WITHOUT AUTHORIZATION
--- NOTE | 2024-06-03 11:50 | NUR ---
PATIENT RESTING IN RECLINER. REPORTS PAIN IS LOW MAYBE 1/10 WHEN HE COUGHS OR BLOWS HIS NOSE. IV SITE ASSESSED AND WNL. BOULS STARTED PER ORDERS. NO FURTHER NEEDS. CALL LIGHT WITHIN REACH.
--- NOTE | 2024-06-03 12:26 | NUR ---
PT IN ROOM WITH PATIENT AT THIS TIME.
--- NOTE | 2024-06-03 13:15 | NUR ---
PATIENT BLADDER SCANNED DUE TO LOW URINARY OUTPUT. BLADDER SCAN WITH NO URINE IN BLADDER. PATIENT IS MAKING URINE HOWEVER AT A SLOW RATE. URINE IS CONCERNTRATED. LUNGS CTA, SCANT AMOUNT OF EDEMA NOTED IN BLLE. PATIENT ASSISTED BACK IN BED PER HIS REQUEST. PATIENT WITH NO FURHER NEEDS. CALL LIGHT WITHIN REACH.
--- NOTE | 2024-06-03 14:15 | NUR ---
IV ABX HUNG. BOWEL TONES HYPOACTIVE AT THIS TIME. PATIENT REPORTS NO PAIN AT THIS TIME. MIDLINE ABD INCISION REMAINS UNCHANGED WITH SAME AMOUNT OF DRAINAGE START OF SHIFT. PATIENT DENIES ANY NAUSEA. DENIES ANY PASSING OF GAS. NO FURTHER NEEDS AT THIS TIME. CALL LIGHT WITHIN REACH.
--- NOTE | 2024-06-03 15:51 | NUR ---
MD NOTIFIED OF LOW URINE OUTPUT THAT CONTINUES. MD DISCUSSED URINE OUTPUT IN LAST 2 HOURS WITH THIS RN. MD WOULD LIKE TO BE NOTIFIED IF URINE OUTPUT CONTINUES TO REMAIN LOW IN THE NEXT FEW HOURS. MD GAVE TELEPHONE ORDERS TO DISCONTINUE ZOSYN IV. ORDERS VERIFIED VIA VERBAL READ BACK. IV ABX WILL BE STOPPED AT THIS TIME.
--- NOTE | 2024-06-03 16:46 | NUR ---
IN ROOM FOR HOURLY ROUNDS. PATIENT DENIES ANY NEEDS AT THIS TIME. CALL LIGHT WITHIN REACH.
--- NOTE | 2024-06-03 17:11 | NUR ---
DC/OXYGEN /CPOX ORDER PATIENT WAS DISCONTINUE BY RN THIS AND HAS DONE WELL THROUGHOUT THE DAY , HE IS POST OVER 24 H .
--- NOTE | 2024-06-03 18:32 | NUR ---
PATIENT RESTING IN BED. NO NEEDS AT THIS TIME. FAMILY AT BEDSIDE. CALL LIGHT WITHIN [facility].
--- NOTE | 2024-06-03 18:41 | NUR ---
UPDATED ON URINE OUTPUT REMAINING SLOW. NEW TELEPHONE ORDERS FOR URINE SAMPLE AND FOR A 500ML BOLUS OF LR. ORDERS VERIFIED VIA VERBAL READ BACK.
--- NOTE | 2024-06-03 19:20 | NUR ---
RECEIVED REPORT FROM LC PLASENCIA. PT RESTING IN BED W/O COMPLAINTS. MULTIPLE FAMILY MEMBERS VISITING AT BEDSIDE.
--- NOTE | 2024-06-03 19:42 | NUR ---
UA OBTAINED FROM LANDERS PORT, SENT TO LAB. FAMILY LEFT FOR SHORT TIME, BED ALARM IN PLACE FOR SAFETY.
[2024-06-03 19:44] LABS: BILIRUBIN, URINE NEGATIVE (negative); BLOOD/HGB, URINE SMALL (Negative); KETONE, URINE TRACE (Negative); LEUK ESTERASE, URINE NEGATIVE (negative); NITRITE, URINE NEGATIVE (negative)
[2024-06-03 19:52] LABS: BACTERIA, URINE NONE SEEN /hpf (negative); CRYSTALS, URINE NONE SEEN (0-1+); EPITHELIAL CELLS, URINE SQUAMOUS 1+ /lpf (0-1+)
[2024-06-03 19:53] LABS: CASTS, URINE NONE SEEN \\lpf; COLLECTION TYPE, URINE CATH; REFLEX CULTURE, URINE No (No)
--- NOTE | 2024-06-03 20:00 | NUR ---
PT AWAKE, RESTING IN BED. VSS. DENIES PAIN. ORIENTED X 4 BUT CAN BE FORGETFUL-WANTED TO GET UP AND GET DRESSED TO BE READY TO HEAD HOME. BED ALARM IN PLACE FOR SAFETY. LSC. HRR. BT HYPO. ABD MILDLY DISTENDED, SOFT AND NON-TENDER. DENIES FLATUS. DENIES NAUSEA. NPO. MIDLINE ABD INC W/ DRIED DRNG. 2 ABD LAP SITES W/ SHADOWING OF DRNG. LANDERS CATH W/ CHANA URINE. RFA IV INFUSING LR @ 100MLS/HR. CALL LIGHT WITHIN REACH. FAMILY PLANS TO RETURN AND STAY AT BEDSIDE OVERNIGHT.
--- NOTE | 2024-06-03 21:35 | NUR ---
PT AWAKE, FAMILY ASLEEP AT BEDSIDE. PT DENIES NEEDS OR CONCERNS.
[2024-06-03] MEDS ORDERED: FUROSEMIDE 20 MG/2 ML VIAL IV ONE (22:15)
--- NOTE | 2024-06-03 22:31 | NUR ---
MD CALLED TO CHECK IN ON PT. UO STILL LOW, MD ORD IV LASIX X1 DOSE. PT AWAKE, DENIES NEEDS AT THIS TIME. FAMILY ASLEEP AT BEDSIDE.
[2024-06-04] VITALS (12 sets, daily range): BP systolic 112–179; BP diastolic 54–90
--- NOTE | 2024-06-04 00:51 | NUR ---
PT AWAKE, REPORTS DIFFICULTY SLEEPING TONIGHT. IVF INFUSING, IV SITE WNL. DTR ASLEEP AT BEDSIDE. LANDERS EMPTIED OF 1550cc CLEAR YELLOW URINE.
[2024-06-04 05:45] LABS: BASOPHILS 0.7 % (0-2); EOSINOPHILS 0.6 % (0-6); HEMATOCRIT 36.7 % (35.0-50.0); HEMOGLOBIN 12.3 g/dL (12.0-18.0); LYMPHOCYTES 9.7 % (24-44); MCH 28.2 (27-36); MCHC 33.6 g/dl (30-36); MCV 83.9 fl (81-99); MONOCYTES 6.9 % (0-12); NEUTROPHILS 82.1 % (39-80); PLATELET COUNT 216 K/uL (140-440); RBC 4.38 M/ul (4.3-5.7); RDW 13.4 (10.5-15.0)
--- NOTE | 2024-06-04 05:48 | NUR ---
PT AWAKE, REPORTS ABD PAIN 5/10. MEDICATED W/ PRN TORADOL PER EMAR. BT REMAIN HYPOACTIVE X 4. ABD SOFT AND NON-TENDER. REPORTS NO FLATUS. DENIES NAUSEA. LANDERS EMPTIED OF 2100cc CLEAR YELLOW URINE. PT IN GOOD SPIRITS. DTR REMAINS AT BEDSIDE. BED ALARM IN PLACE. CALL LIGHT WITHIN REACH.
[2024-06-04 05:52] LABS: ANION GAP 10.4 (7-21); BUN/CREATININE RATIO 19.29 (6.0-28.6); CALCIUM 8.7 mg/dL (8.5-10.1); CREATININE, SERUM 1.14 mg/dL (0.70-1.30); POTASSIUM 3.4 mmol/L (3.5-5.1)
--- NOTE | 2024-06-04 07:15 | NUR ---
REPORT RECEIVED FROM MATHEMATICS TEACHER RN. PATIENT RESTING IN BED LAYING ON HIS RIGHT SIDE. MIDLINE INCISION IN PLACE WITH NO NEW DRAINAGE NOTED. IV SITE WNL. DENIES ANY NEEDS AT THIS TIME. LANDERS CATHERTER DRAINAING YELLOW URINE. FAMILY AT BEDSIDE. CALL LIGHT WITHIN REACH.
--- NOTE | 2024-06-04 08:23 | NUR ---
Board has been uodated and call light has been placed within reach. Daughter is at patient bed side. No request at this time
--- NOTE | 2024-06-04 09:00 | NUR ---
PATIENT C/O PAIN PRN ADMINSTERED. VSS. LANDERS CATHERTER EMPTIED DRAINING QUANITY SUFFICIENT. IVF SITE REMAINS WNL, IVF INFUSING WITH NO ISSUES OR CONCERNS. BOWEL TONES HYPOACTIVE X 4 QUADRANTS. DRESSING TO MIDLINE CDI NO NEW DRAINAGE NOTED. ABD DISTENDED AND TENDER TO TOUCH. PATIENT DENIES PASSING GAS, DENIES NAUSEA. ASSISTED PATIENT TO RECLINER WITH 1 PA ASSIST AND FWW. TOLLERATED WELL, PATIENT STEADY ON FEET. ICE PACK APPLIED TO MIDLINE INCISION. CALL LIGHT WITHIN REACH. FAMILY AT BEDSIDE.
--- NOTE | 2024-06-04 10:30 | NUR ---
PATIENT OUT OF RECLINER TO AMBULATE IN HALLWAY. PATIENT COMPLETED 2 LAPS OF WALKING WITH FWW AND STNAD BY ASSIST. TOLLERATED WELL. REPORTS NO PAIN AT THIS TIME. DENIES PASSING GAS, DENIES ANY NAUSEA. PATIENT RETURNED TO RECLINER AFTER WALK. FAMILY IN ROOM WITH PATIENT. NO FURHER NEEDS CALL LIGHT WITHIN REACH.
--- NOTE | 2024-06-04 11:43 | NUR ---
PATIENT RESTING COMFORTABLY IN RECLINER. FAMILY IN ROOM. PATIENT REPORTS PAIN IS 2/10 AND IMPROVED. URINE COLLECTION BAG EMPTIED AND 125 ML CONCENTRATED CLEAR URINE OUTPUT NOTED. PATIENT DENIES ANY FURTHER NEEDS AT THIS TIME. CALL LIGHT IN REACH.
--- NOTE | 2024-06-04 12:40 | NUR ---
PATIENT WORKING WITH PT AT THIS TIME.
--- NOTE | 2024-06-04 13:45 | NUR ---
RN IN ROOM WITH STUDENT NURSE. LANDERS LITTLEERTER REMOVED PER MD ORDERS. PATIENT TOLLERATED WELL. ACTICOAT DRESSING REMOVED FROM SURGICAL SITE WITH STERI STRIPS INTACT PER MD ORDERS. INCISION APPEARS WNL, NO REDNESS OR SWELLING. SITE APPEARS TO BE WELL APPROXIMATED. RN DID APPLY ADITIONAL STERI STRIPS TO MID ASPECT OF MIDLINE INCISION TO REINFORCE 3 STERI STRIPS THAT WERE ADHEARED TO ACTICOAT AND DISLODGED FROM INCISION. PATIENT WITH ACTIVE BOWEL TONES X 4 QUADRANTS. WATER GIVEN TO PATIENT DIET HAS ADVANCED PER MD ORDERS. PATIENT TOLLERATING SIPS OF WATER AT THIS TIME. NO FURTHER NEEDS. FAMILY AT BEDSIDE. CALL LIGHT WITHIN REACH.
--- NOTE | 2024-06-04 14:32 | NUR ---
THIS STUDENT NURSE IN ROOM WITH PRIMARY RN. WITH DIRECT SUPERVISION OF PRIMARY RN, LANDERS CATHETER REMOVED PER MD ORDER. PATIENT TOLERATED WELL. ACTICOAT ABDOMINAL DRESSINGS REMOVED. STERISTRIPS REINFORCED. PATIENT TOLERATED WELL. ACTICOAT DRESSING DRAINAGE REMAINS UNCHANGED. NOTED NEW DRAINAGE AT INCISION SITE. VISIBLE SURGICAL LINE WELL APPROXIMATED. NO PRULENT DRAINAGE. BOWEL SOUNDS ACTIVE X4 QUADRANTS. PATIENT DENIES FURTHER NEEDS AT THIS TIME. CALL LIGHT IN REACH.
--- NOTE | 2024-06-04 14:40 | NUR ---
PATIENT WITH VOID OF 75MLS IN URINAL AT THIS TIME. NO FURTHER NEEDS. CALL LIGHT WITHIN REACH.
--- NOTE | 2024-06-04 15:30 | NUR ---
IN TO ROUND ON PATIENT. RESTINNG IN BED WITH EYES CLOSED. RESPIRATIONS EVEN AND UNLABORED. CALL LIGHT WITHIN REACH.
--- NOTE | 2024-06-04 16:10 | NUR ---
IN TO ROUND ON PATIENT. DENIES ANY NEEDS AT THIS TIME. CALL LIGHT WITHIN REACH.
--- NOTE | 2024-06-04 17:46 | NUR ---
PATIENT RESTING IN BED WITH FAMILY AT BEDSIDE. IV SITE REMAINS WNL. IVF INFUSING WNL. BOWEL TONES ACITVE AT THIS TIME. PATIENT TOLLERATED CLEAR LIQUIDS FOR DINNER. DENIES ANY NAUSEA AT THIS TIME. MIDLINE INCISION REMAINS WELL APPROXIMATED NO NOTED S/SX OF INFECTION. STERI STRIPS INTACT. VSS. VOIDING QUANITY SUFFICIENT AT THIS TIME. NO FURTHER NEEDS CALL LIGHT WITHIN REACH.
--- NOTE | 2024-06-04 20:21 | NUR ---
Awake, alert and oriented. Pleasant and cooperative with vitals and assessments. Up to edge of bed, used urinal, voided QS clear yellow urine. Back to bed with 1PA/FWW. on room air, clear lungs, slight sob with exertion but recuperated esily on return to bed, helped with turning and repositioning. LE trace edema to ankles and feet, much improved. elevated. Bed alarm for safety. clear fluids at bedside, tolerating well. No c/o pain
--- NOTE | 2024-06-04 21:29 | NUR ---
DR PALENCIA IN ROOM EARLIER TO SEE PT. PT STATED TO PASSING FLATUS. NO C/O PAIN. WILL START FULL LIQUIDS IN AM
--- NOTE | 2024-06-05 00:23 | NUR ---
RESTING, EYS CLOSED, NO S/SX DISTRESS. IVF INFUSING W/O PROBLEMS
--- NOTE | 2024-06-05 02:30 | NUR ---
WAS INCONTINENT OF URINE, GOWN CHANGED. USED URINAL, VOIDING QS. ALERT AND ORIENTED, IVF INFUSING W/O PROBLEMS, HELPED WITH TURNING AND REPOSITIONING IN BED. NO C/O PAIN. BED ALRM ON. FAMILY ROOMING IN
[2024-06-05 05:09] VITALS: BP 155/73
[2024-06-05 05:22] LABS: BASOPHILS 0.5 % (0-2); EOSINOPHILS 2.4 % (0-6); HEMATOCRIT 38.1 % (35.0-50.0); HEMOGLOBIN 12.6 g/dL (12.0-18.0); LYMPHOCYTES 16.6 % (24-44); MCH 28.1 (27-36); MCHC 33.2 g/dl (30-36); MCV 84.9 fl (81-99); MONOCYTES 9.7 % (0-12); NEUTROPHILS 70.8 % (39-80); PLATELET COUNT 215 K/uL (140-440); RBC 4.49 M/ul (4.3-5.7); RDW 13.2 (10.5-15.0)
[2024-06-05 05:33] LABS: ANION GAP 7.3 (7-21); CALCIUM 8.2 mg/dL (8.5-10.1); POTASSIUM 3.3 mmol/L (3.5-5.1)
--- NOTE | 2024-06-05 05:53 | NUR ---
CALL LIGHT ANSWERED, pt UP 1PA WITH FWW TO BATHROOM TO VOID, ATTENDS WET. pt COMPLETED OWN BRUNA CARE AND NEW ATTENDS IN PLACE. pt ALSO VOIDED 200 MLS YELLOW URINE. pt BACK IN BED, BED ALARM ON AND CALL LIGHT IN REACH. IV SITE TO RIGHT FOREARM INFILTRATED AND LEAKING AT INSERTION SITE, IV DC'D-WNL. RUE ELEVATED WITH PILLOW. PRIMARY RN PADDY UPDATED. pt BOOSTED IN BED, DENIES ADDITIONAL NEEDS OR CONCERNS.
--- NOTE | 2024-06-05 06:47 | NUR ---
MESSAGE LEFT WITH DR RODRÍGUEZ PHONE MESSAGE. PT IV DC'D EARLIER DUE TO INFILTRATRION. WILL WAIT FOR ORDERS
--- NOTE | 2024-06-05 07:10 | NUR ---
VERBAL REPORT RECEIVED FROM LC THOMASON. PT RESTS IN BED AWAKE AND ALERT, NO REQUESTS AT THIS TIME.
--- NOTE | 2024-06-05 08:09 | NUR ---
Board has been updated and call light has been placed within reach
[2024-06-05 09:21] VITALS: BP 155/73
--- NOTE | 2024-06-05 10:18 | NUR ---
DR. PALENCIA CALLED, NOTIFIED THAT PT IS TOLERATING PO INTAKE WITH FULL LIQUID DIET WELL. NEW ORDERS FOR PO MEDICATIONS RECEIVED.
[2024-06-05] MEDS ORDERED: FAMOTIDINE 20 MG TAB PO SCH (10:22)
[2024-06-05] MEDS ORDERED: ACETAMINOPHEN 500 MG TAB PO PRN (10:30)
[2024-06-05] MEDS ORDERED: IBUPROFEN 600 MG TAB PO PRN (10:30)
[2024-06-05] MEDS ORDERED: OXYCODONE/APAP 7.5/325 TAB PO PRN (10:30)
--- NOTE | 2024-06-05 10:46 | NUR ---
ABDOMEN IS SOFT AND FLAT. INCISION WELL APPROXIMATED, STERI STRIPS INTACT, OLD DRY DRAINAGE NOTED, NO NEW DRAINAGE. ANTOLIN AT THIS TIME. PT DENIES NAUSEA.
--- NOTE | 2024-06-05 13:53 | NUR ---
PT RESTS IN BED, RESP EVEN AND UNLABORED. REPORTS INCISIONAL PAIN A TOLERABLE 2/10 AT THIS TIME.
[2024-06-05 15:10] VITALS: BP 148/64
[2024-06-05 15:13] VITALS: BP 148/64
--- NOTE | 2024-06-05 15:45 | NUR ---
Walked with Pt and granddaughter in hallway SBA FWW-Pt independent in walking, granddaughter assumed care. No other needs expressed by Pt.
--- NOTE | 2024-06-05 16:18 | NUR ---
PT REPORTS, "A LITTEL NAUSEA, BUT I'M NOT GOING TO VOMIT." DR. PALENCIA CONTACTED VIA PHONE, NEW ORDER FOR ZOFRAN RECEIVED. NEW INSTRUCTIONS TO KEEP PT ON FULL LIQUID DIET RECEIVED.
--- NOTE | 2024-06-05 16:19 | NUR ---
PT AMBULATES IN HALLWAY WITH DAUGHTER.
[2024-06-05] MEDS ORDERED: ONDANSETRON 4 MG TAB ODT SL PRN (16:30)
--- NOTE | 2024-06-05 18:11 | NUR ---
PT AMBULATES IN HALLWAY WITH DAUGHTERS X2, PT HAS STEADY GAIT WITH WALKER. DENIES NAUSEA AT THIS TIME.
[2024-06-05 19:15] VITALS: BP 142/79
[2024-06-05 20:40] VITALS: BP 152/81
--- NOTE | 2024-06-05 20:45 | NUR ---
Awakens easily, on room air, lungs clear bilat, denies sob with exertion. abd soft, tender but denies need for pain meds. midline abd incision with steristrips with old drainage in place. NKECHI, states passing gas but no bm. no IV site. edema trce to LE, elevated. Tolerating full liquids well no n/v at thist vince. repositions self in bed. Pleasant and cooperative with assessments. Uses urinal at HS/ up to BRp with 1PA/FWW. family in room
--- NOTE | 2024-06-05 23:59 | NUR ---
Resting, eyes closed, on room air, used urinal, voiding QS. no s/sx distress
[2024-06-06] VITALS (9 sets, daily range): BP systolic 153–176; BP diastolic 72–99
--- NOTE | 2024-06-06 04:11 | NUR ---
resting, no s/sx distress, on room air.
--- NOTE | 2024-06-06 06:11 | NUR ---
REPORT RECEIVED FROM RN PADDY, ASSUMED CARE OF pt. pt AMBULATES BACK TO BED FROM RESTROOM AFTER UNMEASURED VOID IN TOILET. FLATUS REPORTED, NO BM YET. ASSESSMENT COMPLETE. BOWEL TONES ACTIVE X 4, ABD SOFT, NON-TENDER. REPORTS MINIMAL PAIN AT UMBILICUS, DENIES NEEDS FOR PRN MEDICATION. pt REFUSES TO AMBULATE IN HALLWAY AT THIS TIME, REQUESTING TO REST, ENCOURAGED AMBUALATION, EDUCATION PROVIDED. VSS. CALL LIGHT IN REACH.
--- NOTE | 2024-06-06 07:17 | NUR ---
VERBAL REPORT RECEIVED FROM LC DIXON. PT RESTS IN BED WITH EYES CLOSED, RESP EVEN AND UNLABORED. DAUGHTER IN ROOM.
--- NOTE | 2024-06-06 07:19 | NUR ---
VERBAL REPORT RECEIVED FROM LC DIXON. PT RESTS IN BED WITH EYES CLOSED, RESP EVEN AND UNLABORED.
--- NOTE | 2024-06-06 08:20 | NUR ---
Patient put on underwear with little assistance. Sitting up in their chair for breakfast. Requested coffee and a warm towel to wash their face.
--- NOTE | 2024-06-06 08:35 | NUR ---
PT SITTING IN CHAIR WITH FAMILY PRESENT PT DID EXPRESSES SOME PAIN RATING 4-10 AND REQUESTED SOMETHING FOR PAIN. PT RECIEVED PAIN MEDICATION (SEE EMAR). PT HAS NO OTHER CONCERNS AT THIS TIME CALL LIGHT WITHIN REACH.
[2024-06-06] MEDS ORDERED: POTASSIUM CHLORIDE 10 MEQ TABCR PO SCH (09:00)
--- NOTE | 2024-06-06 10:36 | NUR ---
PATIENT AND DAUGHTER IN ROOM. DISCUSSED LIFT CHAIR. REQUESTING ORDERS BE SENT TO [facility]. ORDER, FACESHEET, H&P AND PROG NOTE SENT TO [facility] FOR LIFT CHAIR SINCE PREVIOUS CHAIR WAS BROKEN. [facility] NOT OPEN TODAY DUE TO HOLIDAY, DAUGHTER STATES FAMILY MEMBERS WILL BE ABLE TO NEWSCAST DIRECTOR THE CHAIR WHEN IT IS READY.
--- NOTE | 2024-06-06 10:59 | NUR ---
VISITED DURING SPIRITUAL CARE ROUNDS. PT SUPPORTED BY DAUGHTER IN ROOM. BOTH IN OVERALL GOOD SPIRITS, NO IMMEDIATE NEEDS. JD EDWARDS CONSULTANT PROVIDED SUPPORTIVE PRESENCE, HOSPITALITY, PRAYER, FACILITATED INTERACTION WITH THERAPY ANIMAL, RELAYED CONSENT FOR BACK END DEVELOPER VISIT TO SACRISTRY. PT AND DAUGHTER EXPRESSED GRADITUDE.
--- NOTE | 2024-06-06 11:20 | NUR ---
Patient walked two laps around [facility] with their .
--- NOTE | 2024-06-06 11:40 | PATH ---
[facility] [address], [place] [address] Signed SPECIMEN(S): A PORTION OF JEJUNUM SPECIMEN SOURCE: A. PORTION OF JEJUNUM CLINICAL HISTORY: Perforation of small bowel, portion of jejunum with perforation and diverticuli FINAL PATHOLOGIC DIAGNOSIS: Jejunum, resection: - Small bowel mucosa with diverticulosis, diverticulitis, and focal active enteritis, with evidence of perforation - Surgical margins appear viable BRP MICROSCOPIC EXAMINATION: Histologic sections of all submitted blocks are examined by light microscopy. These findings, together with the gross examination, support the pathologic diagnosis. GROSS DESCRIPTION: The specimen, labeled and designated "Horowitz GiuliaJulia, portion of jejunum," is received in formalin and consists of a 21.7 cm in length by 5.8 cm in circumference segment of previously opened unoriented small bowel. The serosal surface is jain-pink and smooth with moderate amount of attached mesentery. Mucosa is jain-pink and intact mucosal folds. Mucosal folds are slightly edematous with multiple diverticuli throughout, specifically a 2.7 x 2.5 cm diverticulum that is 4.3 cm away from the closest unoriented margin. 2.3 cm away is a smaller diverticulum with perforation into the underlying mesenteric fat. There is evidence of chalky deposits suggestive of fat necrosis in the underlying mesentery. There are no discrete masses or polyps. Infrastructure Director sections are submitted as follows: Cassette Summary: (A1) unoriented margin #1 closest to area of diverticula (A2) unoriented margin #2 (A3) largest diverticula (A4) diverticula with area of perforation AA (under the direct supervision of a pathologist) PATIENT NAME: ERWIN HOROWITZ PATHOLOGY DATE OF : 39 REPORT #: [id number] PHYSICIAN: DONA LONDONO PCP: JOSEE AUGUSTINE PAC REPORT IS CONFIDENTIAL AND NOT TO BE RELEASED WITHOUT AUTHORIZATION [facility] [address], [place] [address] Signed The Gross Description was prepared using a voice recognition system. The report was reviewed for accuracy; however, sound-alike word errors, addition and/or deletions may occur. If there is any question about this report, please contact Client Services. ADDITIONAL NOTES: Immunohistochemical and/or in situ hybridization studies if performed in this case included appropriate positive controls that reacted as expected. This test was developed and its performance characteristics determined by [facility]. It has not been cleared or approved by the U.S. Food and Drug Administration. The FDA has determined that such clearance or approval is not necessary. This test is used for clinical purposes. It should not be regarded as investigational or for research. [facility] is certified under the Clinical Laboratory Improvement Amendments of 1988 (CLIA) as qualified to perform high complexity clinical laboratory testing. PERFORMING LABORATORY: Technical component was performed by [facility], [address] [place] [id number] (CLIA# [id number]). Professional interpretation was performed by [facility], [address] [place] [address] (CLIA#: [id number]). Diagnostician: Justo Gipson MD Pathologist Electronically Signed 06/06/2024 Copies: ~ PATIENT NAME: ERWIN HOROWITZ PATHOLOGY DATE OF : 39 REPORT #: [id number] PHYSICIAN: DONA PATHOLOGY PCP: JOSEE AUGUSTINE PAC REPORT IS CONFIDENTIAL AND NOT TO BE RELEASED WITHOUT AUTHORIZATION
--- NOTE | 2024-06-06 14:44 | NUR ---
PT AMBULATES IN HALLWAY WITH OT.
--- NOTE | 2024-06-06 16:02 | NUR ---
PT RESTS IN RECLINER AFTER WORKING WITH OT. DENIES PAIN OR NAUSEA AT THIS TIME. ABDOMEN IS FLAT, SOFT AND NON-TENDER. MID-LINE INCISION IS WELL APPROXIMATED, STERI STRIPS INTACT, OLD DRY DRAINAGE NOTED, NO CHAGNES, NO NEW DRAINAGE. BOWEL TONES X4 QUADRANTS ACTIVE. PT REPORTS FLATUS. PT WATCHES TV, VISITOR X1 IN ROOM. CALL LIGHT IN REACH, NO REQUESTS AT THIS TIME.
--- NOTE | 2024-06-06 19:15 | NUR ---
Report obtained from Mary PLATT. on room air, eyes closed. legs elevated. no s/sx distress. family rooming in
--- NOTE | 2024-06-06 20:39 | NUR ---
PT AWAKENS EASILY, ON ROOM AIR, CLEAR LUNGS, MIDLINE ABD INCISION WITH SS AND OLD DRAINAGE AND OLD MICA SITE DRESSING INPLACE. PASSING GAS, NO BM, ABD SOFT, TENDER. MEDICATED WITH TYLENOL PER ABD SICOMFORT. UP TO BRPM 1PA/FWW. BACK TO BED, TOLERATD VERY WELL. TOOK MEDS W/O PROBEMS.
--- NOTE | 2024-06-06 22:30 | NUR ---
ANSWERED CALL LIGHT. PATIENT UP TO USE THE BATHROOM. SBA. PATIENT VOIDED 300ML YELLOW URINE. PATIENT IS BACK IN BED. NO FURTHER REQUEST AT THIS TIME. FAMILY LAYING ON THE COUCH. CALL LIGHT AT PATIENT'S REACH.
--- NOTE | 2024-06-06 22:40 | NUR ---
Used call light, up to BRp with assist, voided, back to bed, tolerated well. no c/o pain
--- NOTE | 2024-06-06 23:30 | NUR ---
PATIENT USED WALKER.
[2024-06-07] VITALS (12 sets, daily range): BP systolic 143–196; BP diastolic 69–90
--- NOTE | 2024-06-07 00:41 | NUR ---
RESTING, ON ROOM AIR, NO SS/X DISTRESS, REPOSITIONS SELF IN BED. FAMILY IN ROOM
--- NOTE | 2024-06-07 03:22 | NUR ---
RESTING, EYES CLOSED, ON ROOM AIR, NO S/SX OR C/O PAIN/DISTRESS. FAMILY IN ROOM
--- NOTE | 2024-06-07 06:27 | NUR ---
Has sleep most of this shift. Got up to BRp earlier w no assist. voiding QS. Back to bed, denies c/o abd pain at this time. abd soft, denies tenderness, passing gas, active bowel tones, no bm. Midline abd insicion with ss and old drainage. L abd old MICA site dressing too. intact. Alert and oriented. no c/o pain
--- NOTE | 2024-06-07 07:31 | NUR ---
MORNING REPORT RECIEIVED FROM LC THOMASON. PT CURRENTLY LAYING IN BED AWAKE, PT STATED " HE HAD NO NEEDS AT THIS TIME, AND SLEPT WELL" PT CALL LIGHT WITHIN REACH.
--- NOTE | 2024-06-07 07:54 | NUR ---
Patient is awake and was in the bathroom upon first entry brushing their teeth. Coffee was requested and given. Patient sat up in their chair for breakfast.
--- NOTE | 2024-06-07 09:34 | NUR ---
Patient is sitting up in their chair. A shower was offered, will get them in at 1000.
--- NOTE | 2024-06-07 09:48 | NUR ---
PATIENT UP IN RECLINER. FAMILY MEMBERS IN ROOM AT THIS TIME. INFORMED ORD[facility] AND [facility]ER[facility]. THEY STATE THEY ARE GOING TO GET A BEDSIDE COMMODE FROM [facility]. THEY ALSO DISCUSSED HOME HEALTH FOR DC. INFORMED THOSE ORDERS WILL BE SENT WHEN HE IS DISCHARGED TO HOME. VERBALIZE UNDERSTANDING. DENY OTHER CM NEEDS AT THIS TIME.
--- NOTE | 2024-06-07 11:34 | NUR ---
PT SITTIING IN CHAIR WITH FAMILY PRESENT IN ROOM PT HAS CALL LIGHT WTIHIN REACH AND NO CURRENT CONCERNS AT THIS TIME.
--- NOTE | 2024-06-07 11:46 | NUR ---
Patient showered with assistance from family. Ambulated hallway and returned to chair once done.
--- NOTE | 2024-06-07 11:49 | NUR ---
PT SITTING IN CHAIR WITH FAMILY PRESENT IN THE ROOM. PT HAS NO REQUESTS AT THIS TIME AND CALL LIGHT WTIHIN REACH.
[2024-06-07] MEDS ORDERED: MAGNESIUM HYDROXIDE 30 ML UDC PO ONE ×2 (12:15→19:45)
--- NOTE | 2024-06-07 13:03 | NUR ---
PT SITTING IN BED WITH FAMILY BED SIDE. PT STATES " HE FEELS GREAT" PT HAS STILL NOT HAD A BM, BUT IS REPORTING FLATULANCE WITH ACTIVE BOWEL SOUNDS IN ALL FOUR QUADRANTS. PT HAS NO CONCERNS AT THIS TIME CALL LIGHT WITHIN REACH.
--- NOTE | 2024-06-07 14:01 | NUR ---
Bedside table moved closer to patient. No cares were requested.
--- NOTE | 2024-06-07 14:15 | NUR ---
PT AMBULATES IN HALLWAY WITH DAUGHTER, GAIT STEADY.
--- NOTE | 2024-06-07 14:22 | NUR ---
PT UP AMBULATING THE MED/SURG FLOOR HALLWAY ACCOMPANIED BY FAMILY MEMBER. PT HAS NO NEEDS AT THIS TIME AND IS TOLERATING AMBULATION WELL.
--- NOTE | 2024-06-07 15:23 | NUR ---
Patient ambulated with PT/OT. Sat in their chair when returned to their room.
--- NOTE | 2024-06-07 18:28 | NUR ---
Patient had high blood pressure. It was first taken on their right arm and was 182/90. Cuff was moved to their left arm and the result was 196/90. grout machine tenderLC Hernandez, LC GAMBOA, and student nurse Luke notified immediately. LC Hernandez said she was going to call and inform Dr. Winston.
[2024-06-07] MEDS ORDERED: NITROGLYCERIN PACKET TOP ONE (18:30)
--- NOTE | 2024-06-07 18:35 | NUR ---
DR. PALENCIA NOTIFIED OF PT CONSISTENT HYPERTENTION, NEW ORDER RECEIVED FOR NITRO PASTE, SEE EMAR. PRIMARY RN, AMARI, RN AND LC HENRY, NOTIFIED.
--- NOTE | 2024-06-07 18:49 | NUR ---
PT BLOOD PRESSURE REPORTED BY HEARING IMPAIRED TEACHER TO BE ELEVATED 196/90, MD PALENCIA CONSULTED VIA PHONE AND ORDERED NITRO (SEE EMAR). PT EDUCATED ON EFFECTS OF NITRO AND PASTE WAS APPLIED TO THE LEFT CHEST AND COVERED IN TEGADERM. PT STATES HE FEELS FINE AND HAS NO FURTHER COMPLAINTS AT THIS TIME CALL LIGHT WITHIN REACH.
--- NOTE | 2024-06-07 19:26 | NUR ---
RECEIVED REPORT FROM DAY SHIFT RN. PATIENT IS RESTING IN RECLINER. PATIENT DENIES ANY NEEDS. CALL LIGHT IN REACH. MD AT BEDSIDE.
[2024-06-07] MEDS ORDERED: hydrALAZINE HCL 10 MG TABLET PO PRN ×2 (19:30→19:45)
--- NOTE | 2024-06-07 21:14 | NUR ---
PATIENTS VITALS TAKEN AND RECORDED. PATIENT DENIES THE NEED TO USE THE BR. PATIENT DENIES ANY PAIN OR NAUSEA. PATIENTS PM MEDS GIVEN PER ORDER. PATIENT DENIES ANY PAIN OR NASUEA. PATIENT ASSESMENT COMPLETED. PATIENT HAS MID ABD INCISION THAT HAS NOTED OLD DRAINAGE, STERI STRIPS IN PLACE, AND IS WELL APPROXIMATED. ACTIVE BOWELS IN ALL QUADRANTS. PATIENTS DENIES ANY FURTHER NEEDS. CALL LIGHT IN REACH.
--- NOTE | 2024-06-07 22:10 | NUR ---
PATIENT IS RESTING IN BED WITH EYES CLOSED, RR 16. CALL LIGHT IN REACH.
--- NOTE | 2024-06-08 00:39 | NUR ---
PATIENT IS RESTING IN BED WITH EYES CLOSED, RR 16. CALL LIGHT IN REACH. DAUGHTER ON COUCH.
[2024-06-08 02:40] VITALS: BP 132/77
--- NOTE | 2024-06-08 02:40 | NUR ---
PATIENT IS RESTING IN BED. PATIENTS VITALS TAKEN AND RECORDED. PATIENT HAS LOOSE BM. PATIENT DENIES ANY PAIN OR NAUSEA. PATIENT DENIES ANY NEEDS. CALL LIGHT IN REACH.
[2024-06-08 02:42] VITALS: BP 132/77
--- NOTE | 2024-06-08 04:17 | NUR ---
PATIENT IS RESTING IN BED ON LEFT SIDE WITH EYES CLOSED, RR 16. CALL LIGHT IN REACH.
[2024-06-08 05:41] VITALS: BP 150/71
--- NOTE | 2024-06-08 07:48 | NUR ---
Received report from UYEN RN. Pt currently sitting up in chair at this time, daughter present at bedtime. Pt syed excited as he had BM lasnight, denies any needs at this time. Call light within reach. All pt care needs met, informed pt we will be back shortly.
--- NOTE | 2024-06-08 08:19 | NUR ---
PT SITTING UP IN CHAIR, TOOK MORNING MEDS NO ISSUES - SEE MAR. PT DENIES PAIN. INCISION TO ABD HAS OLD DRAINAGE, WELL APPROXIMATED. BT PRESENT X4, DENIES NAUSEA, PT REPORTS +FLATUS. DENIES ANY FURTHER NEEDS AT THIS TIME, CALL LIGHT WITHIN REACH. ALL PT CARE NEEDS MET.
[2024-06-08 09:27] VITALS: BP 161/70
--- NOTE | 2024-06-08 09:32 | NUR ---
UP IN RECLINER. DAUGHTER IN ROOM. DISCUSSED LIKELY PLAN FOR DC TODAY. REVIEW IMM LETTER WITH PATIENT AND DAUGHTER. ALSO DISCUSSED LIFT CHAIR, DAUGHTER STATES THEY PICKED UP A LIFT CHAIR YESTERDAY AND TOOK IT TO PATIENT'S HOME. ALSO DISCUSSED ANY FURTHER DC NEEDS. PATIENT AND DAUGHTER DECLINE NEEDS AT THIS TIME FROM CM.
[2024-06-08 10:47] VITALS: BP 161/70
[2024-06-08] MEDS ORDERED: IBUPROFEN600 MG PO (12:14)
[2024-06-08] MEDS ORDERED: OXYCODON-ACETA1 EAC2 PO (12:15)
[2024-06-08] MEDS ORDERED: ACETAMINOPHEN500 MG PO (12:15)
[2024-06-08 13:39] VITALS: BP 164/76
--- NOTE | 2024-06-09 14:22 | DS ---
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 HISTORY OF PRESENT ILLNESS: This 88-year-old Irish man presented to the emergency room having over a week of ongoing vague abdominal pain worsened after eating. The patient had decreased oral intake due to his recurrent pain. His pain worsened dominantly with solid food. He was evaluated in the emergency room by Dr. Green and found to have an elevated white count of 15,600. Creatinine elevated at 1.23. CT scan of the abdomen performed showed bowel wall thickening involving the proximal segment of small bowel with adjacent mesenteric haziness and extraluminal gas consistent with localized perforation. The patient was known to have jejunal diverticula and previous CT scans. The patient is admitted for further evaluation and care. The patient additionally has a history of sepsis related to retained common duct stone, following cholecystectomy elsewhere. He underwent an MRCP, and ultimately ERCP with stone extraction last November. He does have other medical issues including history of coronary bypass in 1994, cervical spinal operation, shoulder operations, right hip replacement, and underlying hypertension. The patient does have history of stroke, for which was on a limited course of Plavix. PERTINENT PHYSICAL EXAMINATION: GENERAL: Pleasant Irish man, not systemically toxic. VITAL SIGNS: Height 6 feet 1 inch, weight 77.7 kg, BMI 22.6. NECK: Trachea was midline. CHEST: Clear except for an end-inspiratory wheeze, which was not constant. ABDOMEN: Nondistended. There is tenderness in mid abdomen below the umbilicus and there is no evidence of ascites. LABORATORY DATA: White count was 15.6, hematocrit 41.7, and platelets are 224,000. Chem profile, abnormal for potassium of 3.3, creatinine 1.23. Liver enzymes normal. Urinalysis normal. HOSPITAL COURSE: The patient was admitted and given broad-spectrum antibiotics. He was observed overnight and found to have persistent tenderness and although there was not widespread pneumoperitoneum, did have localized perforation. Review of the CT scan with Electronically Signed By: PK PALENCIA MD 06/09/24 1422 PATIENT NAME: REWIN HOROWITZ DISCHARGE SUMMARY DATE OF : 39 REPORT #: [id number] PHYSICIAN: PK PALENCIA MD PCP: MARY AUGUSTINE PAC REPORT IS CONFIDENTIAL AND NOT TO BE RELEASED WITHOUT AUTHORIZATION [facility] [address] [place] [id number] Signed radiologist confirmed this likely to be related to perforated jejunal diverticulitis. A non-operative approach was deemed unlikely to be of benefit in this situation, and on June 02, 2024, he underwent laparoscopy. Identification of inflammatory segment of proximal small bowel was noted, but it could not be mobilized to more fully deal with it, and on that basis conversion open laparotomy was undertaken. He was found to have perforation of the proximal jejunum related to small bowel (jejunal) diverticulum. A markedly thickened mesentery was a testimony to the chronicity of this problem. Segmental bowel resection with end-to-end anastomosis was undertaken. Postoperatively, he is maintained with nasogastric tube decompression given the proximal nature of the resected small bowel. In time, he did have flatus allowing for removal of the nasogastric tube and initiation of liquids. He had progressive improvement, ultimately having bowel movement after given milk of magnesia and tolerating a solid food diet. By the day of discharge, he is ambulating well. He has had a number of bowel movements. His midline incision is healing well and he feels well. The patient is advised to walk on a daily basis to avoid deep venous thrombosis or other complications of sedentary living. He is permitted to a regular diet. He will keep Steri-Strips on and is permitted to shower. In-home, PT and OT has been organized for him. We will plan to see him back in the office in a month or so. DISCHARGE MEDICATIONS: 1. Ibuprofen 600 mg p.o. q.6 hours as needed for pain, #30, refill one. 2. Percocet 7.5/325 one-two p.o. q.6 hours as needed for severe pain, #6, no refill. 3. Tylenol plain 500 mg two tablets p.o. q.6 hours p.r.n. pain, #60, refill one. He will continue his usual medicines of: 1. Aspirin enteric-coated 81 mg p.o. daily. 2. Entresto 49/51 mg one tablet p.o. b.i.d. 3. Triamcinolone topically as needed for rash. 4. Saliva substitute combo no. 9 Biotene PBF one cap b.i.d. as needed. 5. Carboxymethylcellulose Refresh Plus eye drops 0.5% one-two drops each eye three times a day as needed for dry eyes. DISCHARGE DIAGNOSES: 1. 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 2. Distant history of cerebrovascular accident. 3. Distant history of coronary artery bypass grafting. 4. Hypertension. 5. Dry eyes. Electronically Signed By: PK PALENCIA MD 06/09/24 1424 PATIENT NAME: ERWIN HOROWIZT DISCHARGE SUMMARY DATE OF : 39 REPORT #: [id number] PHYSICIAN: PK PALENCIA MD PCP: MARY AUGUSTINE PAC REPORT IS CONFIDENTIAL AND NOT TO BE RELEASED WITHOUT AUTHORIZATION [address] [place], [place] [address] Signed MD NICKY Redman/KRISL /[id number] cc: Mary Green MD Copies: MARY AUGUSTINE WILLIAM S MD ~ Electronically Signed By: PK PALENCIA MD 06/09/24 1422 PATIENT NAME: ERWIN HOROWITZ DISCHARGE SUMMARY DATE OF : 39 REPORT #: [id number] PHYSICIAN: PK PALENCIA MD PCP: MARY AUGUSTINE PAC REPORT IS CONFIDENTIAL AND NOT TO BE RELEASED WITHOUT AUTHORIZATION
== END 2024-06-08 13:45 | disposition home or self-care (01) | DRG 331 ==
LOC: ED 10:39 → MS 14:57
PROVIDERS: Emergency Medicine; ADMIT Surgery; ATTEND Surgery
PROC: 0DBA0ZZ Excision of Jejunum, Open Approach (ICD-10-PCS; principal; 2024-06-02 10:30)
PROC: 0T9B70Z Drainage of Bladder with Drainage Device, Via Natural or Artificial Opening (ICD-10-PCS; 2024-06-03)
PROC: 0DH67UZ Insertion of Feeding Device into Stomach, Via Natural or Artificial Opening (ICD-10-PCS; 2024-06-03)
DX: K57.00 Diverticulitis of small intestine with perforation and abscess without bleeding (principal); I10 Essential (primary) hypertension; E78.00 Pure hypercholesterolemia, unspecified; Z96.641 Presence of right artificial hip joint; Z86.74 Personal history of sudden cardiac arrest; Z79.899 Other long term (current) drug therapy; Z79.82 Long term (current) use of aspirin; Z86.73 Personal history of transient ischemic attack (TIA), and cerebral infarction without residual deficits; Z53.31 Laparoscopic surgical procedure converted to open procedure; Z95.1 Presence of aortocoronary bypass graft; Z98.1 Arthrodesis status; Z90.49 Acquired absence of other specified parts of digestive tract
CPT/HCPCS: 00732; 36415; 51798; 71045; 74177; 80048; 80053; 81001; 81003; 83690; 85025; 88307; 93005; 93010; 94640; 94668; 94762; 96375; 97110; 97116; 97161; 97165; 97530; 97535; 99285-25; A9270; J0330; J1100; J1160; J1720; J1885; J1940; J2270; J2405; J2543; J2704; J2765; J2795; J3010; J3490; J7030; J7121; Q9967

== ENCOUNTER 2025-01-16 08:47 | Emergency (ER) | payer MEDICARE, OTHER ==
[~2025-01-16] VITALS: Ht 182.9 cm; Wt 78.4 kg
[~2025-01-16 08:47] MED LIST changes: +ACETAMINOPHEN500 MG PO; +BIOTENE PBF473 ML MM; +IBUPROFEN600 MG PO; +OXYCODON-ACETA1 EAC2 PO; +REFRESH PLUS1 EACH OU; +TRIAMCINOLONE A15 G1 TOP
[2025-01-16] MEDS ORDERED: SODIUM CHLORIDE 0.9% 1,000 ML IV ONE (09:30)
[2025-01-16 09:44] LABS: BASOPHILS 0.4 % (0.2-1.2); EOSINOPHILS 0.8 % (0.8-7.0); LYMPHOCYTES 11.9 % (21.8-53.1); MCH 25.5 PG (25.7-32.2); MCHC 31.1 g/dL (32.3-36.5); MCV 81.8 fL (79.0-92.2); MONOCYTES 6.5 % (5.3-12.2); NEUTROPHILS 80.1 % (34.0-67.9); RBC 3.85 M/uL (4.63-6.08)
[2025-01-16 10:00] LABS: ALT (SGPT) 14.0 U/L (14-59); AST (SGOT) 18.0 U/L (15-37); GLOMERULAR FILTRATION RATE,EST 67.0 mL/min (>60); PROTEIN, TOTAL 5.3 g/dL (6.4-8.2); UREA NITROGEN 18.0 mg/dL (7-18)
[2025-01-16 10:27] LABS: BLOOD/HGB, URINE NEGATIVE (Negative); KETONE, URINE NEGATIVE (Negative); LEUK ESTERASE, URINE NEGATIVE (negative); NITRITE, URINE NEGATIVE (negative)
[2025-01-16 10:38] LABS: CORONAVIRUS COVID-19 AG NEGATIVE (NEGATIVE)
[2025-01-16 11:15] VITALS: BP 135/74
== END 2025-01-16 11:15 | disposition home or self-care (01) ==
LOC: ED 08:47
PROVIDERS: Emergency Medicine
DX: B34.9 Viral infection, unspecified (principal); I10 Essential (primary) hypertension; E78.00 Pure hypercholesterolemia, unspecified; I25.2 Old myocardial infarction; Z79.82 Long term (current) use of aspirin; Z79.899 Other long term (current) drug therapy
CPT/HCPCS: 36415; 71045; 80053; 81003; 85025; 99285-25; J7030

== ENCOUNTER 2025-01-26 19:03 | Inpatient (IN) | payer MEDICARE, OTHER ==
[~2025-01-26] VITALS: Ht 182.9 cm; Wt 77.8 kg
--- OUTSIDE RECORDS SUMMARY | 2025-01-26 19:10 | XMS ---
PreManage Notification: ERWIN HOROWITZ Security Boat Deckhand Events No recent Security Events currently on file CRITERIA MET - [facility] - 2 Visits in 30 Days CARE PROVIDERS JOSEE AUGUSTINE Physician Supplemental Manager 06/01/2024-Current PHONE: Unknown [place] has no Care Guidelines for this patient. [place] VISIT COUNT (12 MO.) 3 [facility] TOTAL 3 NOTE: Visits indicate total known visits. ED/C VISIT TRACKING (12 MO.) 01/26/2025 19:03 [facility] TYPE: Emergency COMPLAINT: - ABDOMINAL PAIN 01/16/2025 08:47 [facility] TYPE: Emergency COMPLAINT: - WEAKNESS DIAGNOSES: - Essential (primary) hypertension - intermediate designer (current) use of aspirin - Old myocardial infarction - Other fatigue - Other long term acute care registered nurse (current) drug therapy - Pure hypercholesterolemia, unspecified - Viral infection, unspecified 06/01/2024 10:39 [facility] TYPE: Emergency COMPLAINT: - ABDOMINAL PAIN INPATIENT VISIT TRACKING (12 MO.) 06/01/2024 14:[address] [facility] TYPE: Medical Surgical COMPLAINT: - BOWEL PERFORATION DIAGNOSES: - Acquired absence of other specified parts of digestive tract - Arthrodesis status - Diverticulitis of small intestine with perforation and abscess without bleeding - Essential (primary) hypertension - Laparoscopic surgical procedure converted to open procedure - correction (current) use of aspirin - Nausea with vomiting, unspecified - Other long term acute care registered nurse (current) drug therapy - Personal history of sudden cardiac arrest - Personal history of transient ischemic attack (TIA), and cerebral infarction without residual deficits - Presence of aortocoronary bypass graft - Presence of right artificial hip joint - Pure hypercholesterolemia, unspecified [id number]
[2025-01-26] MEDS ORDERED: MORPHINE SULFATE 4 MG/ML VIAL IV ONE (20:00)
[2025-01-26] MEDS ORDERED: FAMOTIDINE 20 MG/ 2 ML VIAL IV ONE (20:00)
[2025-01-26 20:03] LABS: BASOPHILS 0.3 % (0.2-1.2); EOSINOPHILS 1.2 % (0.8-7.0); LYMPHOCYTES 15.5 % (21.8-53.1); MCH 25.4 PG (25.7-32.2); MCHC 30.4 g/dL (32.3-36.5); MCV 83.6 fL (79.0-92.2); MONOCYTES 6.3 % (5.3-12.2); NEUTROPHILS 76.3 % (34.0-67.9); RBC 4.33 M/uL (4.63-6.08)
[2025-01-26 20:14] LABS: ALT (SGPT) 17.0 U/L (14-59); AST (SGOT) 27.0 U/L (15-37); GLOMERULAR FILTRATION RATE,EST 77.0 mL/min (>60); PROTEIN, TOTAL 6.0 g/dL (6.4-8.2); UREA NITROGEN 15.0 mg/dL (7-18)
[2025-01-26 21:27] LABS: BLOOD/HGB, URINE NEGATIVE (Negative); KETONE, URINE NEGATIVE (Negative); LEUK ESTERASE, URINE NEGATIVE (negative); NITRITE, URINE NEGATIVE (negative)
[2025-01-26] MEDS ORDERED: LIDOCAINE 2% VISCOUS 6 ML SYR TOP ONE (21:30)
[2025-01-26] MEDS ORDERED: PIPERACILLIN/TAZOBACTAM 4.5 GM in SODIUM CHLORIDE 0.9% 100 ML IV ONE (21:30)
[2025-01-26] MEDS ORDERED: LACTATED RINGER'S 1,000 ML IV SCH (22:00)
[2025-01-26] MEDS ORDERED: MORPHINE SULFATE 4 MG/ML VIAL IV PRN (22:00)
[2025-01-26 22:25] VITALS: BP 128/83
[2025-01-26 22:55] VITALS: BP 128/83
--- NOTE | 2025-01-26 23:30 | NUR ---
PT LAYING IN BED, IV FLUID INSFUSING WELL, NG TUBE CONNECTED TO WALL SUCTION, NO COMPLAINT OF PAIN AT THE MOMENT. ASSESSMENT DONE. PT DENIES NEEDS AT THIS TIME. CALL LIGHT IN REACH.
[2025-01-27] VITALS (9 sets, daily range): BP systolic 127–150; BP diastolic 61–78
--- NOTE | 2025-01-27 00:41 | NUR ---
PT RESTING IN BED, RESPIRATIONS EVEN AND UNLABORED. IV FLUID INFUSING WITHOUT PROBLEM. NG TUBE INTACT, CONNECTED TO LIS. NO NEEDS NOTED AT THIS TIME. CALL LIGHT IN REACH.
--- NOTE | 2025-01-27 01:34 | NUR ---
PT AMBULATED TO THE BATHROOM X1PA WITH A HIS CANE. RECONNECTED PT TO SUCTION ORDERED. VITAL SIGNS TAKEN AND RECORDED. INTAKE AND OUTPUT RECORDED. DENIES FURTHER NEEDS. CALL LIGHT IN REACH.
--- NOTE | 2025-01-27 04:02 | NUR ---
PT RESTING IN BED, RESPIRATIONS EVEN AND UNLABORED. NG-LIS STILL INTACT. IVF INFUSING WITHOUT PROBLEM. NO NEEDS NOTED AT THIS TIME. CALL LIGHT IN REACH.
[2025-01-27 05:11] LABS: BASOPHILS 0.2 % (0.2-1.2); EOSINOPHILS 1.1 % (0.8-7.0); LYMPHOCYTES 10.8 % (21.8-53.1); MCH 26.0 PG (25.7-32.2); MCHC 31.0 g/dL (32.3-36.5); MCV 83.8 fL (79.0-92.2); MONOCYTES 6.6 % (5.3-12.2); NEUTROPHILS 81.1 % (34.0-67.9); RBC 3.58 M/uL (4.63-6.08)
[2025-01-27 05:26] LABS: ALT (SGPT) 13.0 U/L (14-59); AST (SGOT) 14.0 U/L (15-37); GLOMERULAR FILTRATION RATE,EST 83.0 mL/min (>60); PROTEIN, TOTAL 4.9 g/dL (6.4-8.2); UREA NITROGEN 13.0 mg/dL (7-18)
--- NOTE | 2025-01-27 06:20 | NUR ---
PT LAYING IN BED, JERRELL SIGNS TAKEN AND RECORDED, INTAKE AND OUTPUT RECORDED. NO COMPLAIN OF PAIN AT THE MOMENT. DENIES NEEDS. CALL LIGHT IN REACH.
--- NOTE | 2025-01-27 07:11 | NUR ---
REPORT RECIEVED FROM LC ARREDONDO. PATIENT SITTING UP IN BED AND IS WITHOUT ANY NEEDS AT THIS TIME. CALL LIGHT AND PERSONAL BELONGINGS ARE WITHIN REACH.
[2025-01-27] MEDS ORDERED: FIRMAGON80 MG SUB-Q (07:20)
--- NOTE | 2025-01-27 08:34 | NUR ---
PATIENT MEDICATED PER EMAR. PATIENT NG TUBE WITH BROWN GASTIC CONTENT. LR INFUSING AT 100ML/HR PER ORDER. PATIENT SITTING UP IN BED WITH HIS DAUGHTER AT BEDSIDE. PATIENT ASSESSMENT COMPLETED. PATIENT DENIES ANY PAIN AT THIS TIME. WARM BLANKET PROVIDED. PATIENT REPORTS BEING WEAKER THAN NORMAL, PATIENT'S DAUGHTER EXPRESSED CONCERNS OF PATIENT GETTING UP TO USE THE BATHROOM DUE TO WEAKNESS. REASURED PATIENT AND PATIENT'S DAUGHTER THAT PATIENT WILL NOT BE GETTING UP TO THAT BATHROOM WITHOUT ASSISTANCE AND THAT THIS RN WILL BE THERE TO HELP ASSIST. ALSO OFFERED PATIENT URINAL OR PUREWICK ALTERNATIVES UNTIL PATIENT FEELS HE HAS MORE STRENGTH. PATIENT STATES HE DOES STILL WANT TO TRY AND GET UP TO THE BATHROOM MUCH POSSIBLE AND THAT HE WILL LET THIS RN KNOW IF HE DECIDES TO USE THE ALTERNATIVES FOR URINATION. PATIENT WITHOUT FURTHER NEEDS AT THIS TIME. CALL LIGHT AND PERSONAL BELONGINGS ARE WITHIN REACH. VITAL SIGNS TAKEN AND ARE STABLE.
[2025-01-27] MEDS ORDERED: FAMOTIDINE 20 MG/ 2 ML VIAL IV SCH (09:00)
--- NOTE | 2025-01-27 09:18 | NUR ---
INTO SEE PATIENT. PERSONAL HEALTH INFORMATION REVIEWED. PATIENT LIVES IN A MOTHER IN LAW HOUSE NEXT TO HIS GRANDDAUGHTER. NO STEPS INTO HIS HOME. USES A CANE AND WALKER AT BASELINE. DOES NOT USE ANY OXYGEN OR CPAP. DRIVES A LITTLE. FAMILY DRIVES MOSTLY. PATIENT DENIES ANY DIFFCULTY WITH UTLITIES OR OBTAINING FOOD. FAMILY TO TAKE HIM HOME ONCE MEDICALLY CLEARED. NO FUTHER CM NEEDS.
--- NOTE | 2025-01-27 09:22 | NUR ---
PATIENT TAKEN OFF THE FLOOR TO IMAGING
--- NOTE | 2025-01-27 09:35 | NUR ---
PATIENT BACK FROM IMAGING. NG REATTACHED TO LOW INTERMITTENT SUCTION, IV FLUSHED WITH 10ML OF NS, DRESSING IS INTACT. LR INFUSING AT 100ML/HR PER ORDER. SCD'S APPLIED AND TURNED ON PER VERBAL ORDER FROM DR TRAN. ALSO WITH VERBAL ORDER FOR OKAY FOR PATIENT TO HAVE HARD CANDY TO HELP WITH DRY MOUTH PER PATIENT REQUEST. PATIENT WITHOUT FURTHER ORDERS AT THIS TIME. CALL LIGHT AND PERSONAL BELONGINGS ARE WITHIN REACH. PATIENT FAMILY AT BEDSIDE.
[2025-01-27] MEDS ORDERED: ACETAMINOPHEN 325 MG TAB PT PRN (09:45)
[2025-01-27] MEDS ORDERED: PROCHLORPERAZINE EDISYLATE 10 MG/2 ML VIAL IV PRN (09:45)
[2025-01-27] MEDS ORDERED: LACTATED RINGER'S 1,000 ML IV SCH (09:45)
[2025-01-27] MEDS ORDERED: HYDROmorphone HCL 1 MG/ML SYR IV PRN (10:00)
--- NOTE | 2025-01-27 10:36 | NUR ---
PT AT BEDSIDE TO WORK WITH PATIENT. NG TUBE CLAMPED FOR SAFE TRANSFER WHILE WORKING WITH PT. IV FLUSHED WITH 10ML OF NS AND IS SALINE LOCKED FOR SAFE PATIENT TRANSFER WELL.
[2025-01-27] MEDS ORDERED: SOD PHOSPHATE/SOD BIPHOSPHATE 132 ML BTL PR PRN (11:15)
--- NOTE | 2025-01-27 11:20 | NUR ---
DR ESCOBAR WITH VERBAL ORDERS TO GIVE PATIENT 2 FLEET ENEMAS, CLAMP NG TUBE NOW AND PULL NG TUBE IN 4 HOURS IF PATIENT HAS NO NAUSEA OR PAIN. IF PATIENT TOLERATES NG TUBE REMOVAL AND DOES NOT HAVE ANY NAUSEA OR PAIN, ADVANCE PATIENT'S DIET TO FULL LIQUID DIET. Q6 SUGAR CHECKS FOR PATIENT WHILE ON NPO STATUS.
--- NOTE | 2025-01-27 11:50 | NUR ---
ADMINISTERED ENEMA PER EMAR. PATIENT TOLERATED WELL. BEDSIDE COMMODE PLACED NEXT TO PATIENT'S BED. PATIENT EDUCATED TO CALL WHEN HE FEELS THE URGE TO HAVE A BM. PATIENT WITH VERBAL UNDERSTANDING. CALL LIGHT AND PERSONAL BELONGINGS ARE WITHIN REACH.
[2025-01-27] MEDS ORDERED: PHARMACY RENAL DOSE ADJUSTMENT 1 DOSE MISC PO SCH (12:00)
--- NOTE | 2025-01-27 12:00 | NUR ---
PATIENT UP TO THE BEDSIDE COMMODE FOR BM AT THIS TIME. PATIENT EDUCATED TO CALL WHEN FINISHED. PATIENT WITH VERBAL AGREEMENT.
--- NOTE | 2025-01-27 12:09 | NUR ---
PATIENT WITH 4-SMALL, SOLID "NUGGET" SIZE STOOL OUTPUT WELL WITH APPROX 100ML OF UNMEASURED CLEAR LIQUID. PATIENT STATES "YEAH, IT TOOK SOME PRESSURE OFF" WHEN ASKED BY THIS RN IF HE FEELS ANY BETTER AFTER HAVING BM. PATIENT DENIES ANY PAIN OR NAUSEA AT THIS TIME WITH NG TUBE CLAMPED. PATIENT BACK IN BED WATCHING TV AND DENIES ANY FURTHER NEEDS AT THIS TIME. CALL LIGHT AND PERSONAL BELONGINGS ARE WITHIN REACH.
--- NOTE | 2025-01-27 13:02 | NUR ---
SECOND ENEMA ADMINISTERED PER ORDER. PATIENT TOLERATED WELL. PATIENT EDUCATED TO CALL WHEN HE FEELS THE URGE TO HAVE A BOWEL MOVEMENT. PATIENT WITH VERBAL UNDERSTANDING. PATIENT IV FLUSHED WITH 10ML OF NS AND IS SALINE LOCKED AT THIS TIME FOR SAFE PATIENT TRANSFER DUE TO URGENCY FROM ENEMA.
--- NOTE | 2025-01-27 13:20 | NUR ---
PATIENT WITH 2-SMALL, SOLID "NUGGET" SIZE STOOL OUTPUT WELL WITH APPROX 100ML OF UNMEASURED CLEAR LIQUID. PATIENT DENIES ANY PAIN OR NAUSEA AT THIS TIME WITH NG TUBE CLAMPED. PATIENT BACK IN BED WATCHING TV AND DENIES ANY FURTHER NEEDS AT THIS TIME. CALL LIGHT AND PERSONAL BELONGINGS ARE WITHIN REACH.
--- NOTE | 2025-01-27 14:04 | NUR ---
PATIENT SITTING UP IN BED RESTING WITH HIS EYES CLOSED. EVEN AND UNLABORED RESPIRATIONS NOTED. CALL LIGHT AND PERSONAL BELONGINGS ARE WITHIN REACH.
--- NOTE | 2025-01-27 15:40 | NUR ---
PATIENT DENIES ANY PAIN OR NAUSEA FOR THE PAST 4 HOURS, PER DR ESCOBAR VERBAL ORDER, NG TUBE REMOVED AND PATIENT ADVANCED TO FULL LIQUID DIET. PATIENT WITHOUT FURTHER NEEDS AT THIS TIME. CALL LIGHT AND PERSONAL BELONGINGS ARE WIHTIN REACH.
--- NOTE | 2025-01-27 16:56 | NUR ---
PATIENT SITTING UP IN BED EATING DINNER. PATIENT REPORTS HAVING BOWEL MOVEMENT. COMMODE EMPTIED AND APPROX 200ML OF CLEAR LIQUID WITH 1 MEDIUM SIZE, ROUND, SOLID STOOL NOTED. PATIENT DENIES ANY PAIN OR NAUSEA. DR ESCOBAR UPDATED ON PATIENT NG TUBE REMOVAL AND DIET ADVANCEMENT.
--- NOTE | 2025-01-27 17:45 | NUR ---
PATIENT SITTING UP IN BED RESTING WITH HIS EYES CLOSED. EVEN AND UNLABORED RESPIRATIONS NOTED. CALL LIGHT AND PERSONAL BELONGINGS ARE WITHIN REACH.
--- NOTE | 2025-01-27 18:03 | NUR ---
DR TRAN AT BEDSIDE
--- NOTE | 2025-01-27 18:50 | NUR ---
PATIENT BACK IN BED FROM BEING UP TO THE COMMODE. PATIENT DID NOT HAVE A BOWEL MOVEMENT, BUT STATES HE WAS ABLE TO PASS MORE GAS. PATIENT WITH 250ML OF URINE OUTPUT. VITAL SIGNS TAKEN AND ARE STABLE. PATIENT WITHOUT FURTHER NEEDS AT THIS TIME. IV FLUIDS INFUSING PER ORDER. CALL LIGHT AND PERSONAL BELONGINGS ARE WITHIN REACH.
--- NOTE | 2025-01-27 19:30 | NUR ---
PT RESTING IN BED, RESPIRATIONS EVEN AND UNLABORED. DENIES NAUSEA OR PAIN. IV FLUID INFUSING WELL. DENIES NEEDS AT THE MOMENT CALL LIGHT IN REACH.
--- NOTE | 2025-01-27 19:51 | EKG ---
[facility] [address] [facility] [place] [address] Signed Normal sinus rhythm Left anterior fascicular block Nonspecific ST and T wave abnormality Abnormal ECG When compared with ECG of 23-JAN-2025 12:22, premature atrial complexes are no longer present Vent. rate has increased BY 37 BPM Left anterior fascicular block is now present ST now depressed in Lateral leads Nonspecific T wave abnormality no longer evident in Anterior leads Confirmed by Eris Tran DO ([id number]) on 01/27/2025 7:51:44 PM Electronically Signed By: ERIS TRAN DO 01/27/251950 PATIENT NAME: ERWIN HOROWITZ Electrocardiogram DATE OF : 39 PHYSICIAN: ERIS TRAN DO REPORT #: [id number] REPORT IS CONFIDENTIAL AND NOT TO BE RELEASED WITHOUT AUTHORIZATION
--- NOTE | 2025-01-27 20:16 | NUR ---
PT RESTING IN BED, VITAL SIGNS TAKEN AND RECORDED. INTAKE AND OUTPUT RECORDED. DENIES NAUSEA OR PAIN. VERBALIZED FEELING BETTER. DENIES NEEDS AT THIS TIME CALL LIGHT IN REACH.
--- NOTE | 2025-01-27 23:43 | NUR ---
PT RESTING IN BED, AWAKE. RESPIRATIONS EVEN AND UNLABORED. DENIES NEEDS AT THE MOMENT. CALL LIGHT IN REACH.
[2025-01-28 01:30] VITALS: BP 148/71
--- NOTE | 2025-01-28 01:38 | NUR ---
PT RESTING IN BED, VITAL SIGNS TAKEN AND RECORDED. INTAKE AND OUT PUT RECORDED. DENIES NEEDS. CALL LIGHT IN REACH.
[2025-01-28 01:39] VITALS: BP 148/71
--- NOTE | 2025-01-28 03:41 | NUR ---
PT RESTING IN BED, AWAKE, RESPIRATIONS EVEN AND UNLABORED. IV FLUID INFUSING WELL. DENIES NEEDS. CALL LIGHT IN REACH.
--- NOTE | 2025-01-28 04:19 | NUR ---
IN ROOM IN RESPONSE TO IV PUMP ALARMING. PATIENT SITTING WITH ARMS BENT, REMINDED TO KEEP ARM STRAIGHT DUE TO POSITIONING. PATIENT ATTEMPTED TO SILENCE IV PUMP HIMSELF, PUSHING BUTTONS ON PUMP. PATIENT REMINDED THAT IT IS IMPORTANT NOT TO TOUCH IV PUMP WITHOUT THE NURSE AND REMINDED PATIENT TO CALL. PATIENT AGREEABLE. BED ALARM ON. NO FURTHER NEEDS, CALL LIGHT IN REACH
[2025-01-28 05:10] VITALS: BP 142/80
--- NOTE | 2025-01-28 05:12 | NUR ---
NON LICENSED NUCLEAR EQUIPMENT OPERATOR OBTAINED VITALS AND I&O. PT STATES NO FURTHER NEEDS AT THIS TIME. CALL LIGHT WITHIN REACH. BED ALARM ON.
[2025-01-28 05:24] VITALS: BP 142/80
--- NOTE | 2025-01-28 05:28 | NUR ---
PT AWAKE IN BED, RESPIRATIONS EVEN AND UNLABORED. DENIES NAUSEA AND ABDOMINAL PAIN. TOLERATES PO INTAKE. IV FLUID INFUSING WELL, DENIES FURTHER NEEDS CALL LIGHT IN REACH.
[2025-01-28 06:03] LABS: BASOPHILS 0.5 % (0.2-1.2); EOSINOPHILS 2.0 % (0.8-7.0); LYMPHOCYTES 16.3 % (21.8-53.1); MCH 25.6 PG (25.7-32.2); MCHC 31.3 g/dL (32.3-36.5); MCV 81.8 fL (79.0-92.2); MONOCYTES 7.5 % (5.3-12.2); NEUTROPHILS 73.4 % (34.0-67.9); RBC 3.63 M/uL (4.63-6.08)
[2025-01-28 06:11] LABS: GLOMERULAR FILTRATION RATE,EST 86.0 mL/min (>60); UREA NITROGEN 7.0 mg/dL (7-18)
--- NOTE | 2025-01-28 06:55 | NUR ---
PT STATED HE HAD AN ACCIDENT IN THE BED, LINEN CHANGED AND PT'S GOWN CHANGED. PT DENIES FURTHER NEEDS.
--- NOTE | 2025-01-28 07:11 | NUR ---
CALL LIGHT ANSWERED. PT NEEDED TO USE BATHROOM. FINANCE MGR 1PA TO STAND AT BEDSIDE AND PT USED URINAL. PT THEN ASSISTED BACK TO BED. PT STATES NO FURTHER NEEDS AT THIS TIME. CALL LIGHT WITHIN REACH AND BED ALARM ON.
--- NOTE | 2025-01-28 07:25 | NUR ---
REPORT RECIEVED FROM LC ARREDONDO AND LC DIXON. PATIENT RESTING IN BED AND DENIES ANY ABD PAIN OR NAUSEA. PATIENT DOES REPORT NECK PAIN "LIKE I SLEPT WRONG ON IT". PATIENT STATES HE WILL TAKE TYLENOL OFFERED BY THIS RN. PATIENT UP TO CHAIR VIA SBA WITH THIS RN AT SIDE FOR IV POLE MANAGEMENT. PATIENT TOLERATED WELL AND DENIES ANY DIZZINESS WITH MOVEMENT. DEDE CAPPS IN ROOM AND PROVIDED ICE WATER AND WARM BLANKET. PATIENT WITHOUT FURTHER NEEDS AT THIS TIME. CALL LIGHT AND PERSONAL BELONGINGS ARE WITHIN REACH.
[2025-01-28] MEDS ORDERED: MAGNESIUM SULFATE 2 GM/50 ML BAG IV ONE (08:15)
--- NOTE | 2025-01-28 08:15 | NUR ---
PATIENT MEDICATED PER EMAR. PATIENT SITTING UP IN HIS CHAIR EATING BREAKFAST AND IS WITHOUT ANY NEEDS AT THIS TIME. CALL LIGHT AND PERSONAL BELONGINGS ARE WITHIN REACH.
--- NOTE | 2025-01-28 09:03 | NUR ---
PATIENT ASSESSMENT COMPLETED. PATIENT RESTING IN BED AND IS WITHOUT ANY NEEDS AT THIS TIME. CALL LIGHT AND PERSONAL BELONGINGS ARE WITHIN REACH.
[2025-01-28 09:29] VITALS: BP 156/82
[2025-01-28 10:00] VITALS: BP 156/82
--- NOTE | 2025-01-28 10:15 | NUR ---
PATIENT IV AND TELE REMOVED FOR PATIENT TO GET DRESSED FOR DISCHARGE. IV CATH INTACT. NO REDNESS OR SWELLING NOTED AT IV SITE. PRESSURE DRESSING OF GAUZE AND COBAN APPLIED. PATIENT DAUGHTER AT BEDSIDE. THIS RN LET PATIENT AND HIS DAUGHTER KNOW WE ARE GATHERING DISCHARGE PAPERWORK AND WILL BE BACK IN PATIENT ROOM TO GO OVER DISCHARGE PAPERWORK AND EDUCATION. PATIENT AND HIS DAUGHTER WITH VERBAL UNDERSTANDING.
--- NOTE | 2025-01-28 10:35 | NUR ---
WHILE THIS RN AND LC MULLINS WERE WORKING ON PATIENT'S DISCHARGE PAPERWORK, PATIENT'S DAUGHTER GOT WHEELCHAIR AND ASKED SECURITY FOR HELP WITH TRANSPORTING PATIENT OFF THE FLOOR. WAS UNABLE TO PROVIDE DISCHARGE PAPERWORK DUE TO PATIENT LEAVING. 1050 BELKIS, PATIENT'S DAUGHTER WAS ABLE TO BE CONTACTED AND INFORMATION PROVIDED. BELKIS WITH VERBAL UNDERSTANDING OF PATIENT DISCHARGE INSTRUCTIONS AND STATES SHE WILL "COME BY AT SOME POINT TODAY AND CLINICAL STAFF EDUCATOR HIS PAPERWORK". PATIENT'S DAUGTHER WITH NO FURTHER QUESTIONS, CALL ENDED.
--- NOTE | 2025-01-28 11:37 | NUR ---
PATIENT GRANDDAUGHTER, HINA STOPPED BY AND PICKED UP PATIENT'S DISCHARGE PAPERWORK. ALL QUESTIONS ANSWERED, HINA SIGNED PATIENT'S DISCHARGE PAPER.
== END 2025-01-28 10:27 | disposition home or self-care (01) | DRG 390 ==
LOC: ED 19:03 → MS 21:51
PROVIDERS: Internal Medicine; ADMIT Student in an Organized Health Care Education/Training Program; ATTEND Student in an Organized Health Care Education/Training Program
PROC: 0D9670Z Drainage of Stomach with Drainage Device, Via Natural or Artificial Opening (ICD-10-PCS; principal; 2025-01-26)
PROC: 3E03329 Introduction of Other Anti-infective into Peripheral Vein, Percutaneous Approach (ICD-10-PCS; 2025-01-26)
DX: K56.609 Unspecified intestinal obstruction, unspecified as to partial versus complete obstruction (principal); I25.10 Atherosclerotic heart disease of native coronary artery without angina pectoris; E78.00 Pure hypercholesterolemia, unspecified; Z96.641 Presence of right artificial hip joint; I89.0 Lymphedema, not elsewhere classified; E78.5 Hyperlipidemia, unspecified; E66.9 Obesity, unspecified; I11.0 Hypertensive heart disease with heart failure; I50.9 Heart failure, unspecified; M89.9 Disorder of bone, unspecified; Z86.79 Personal history of other diseases of the circulatory system; Z98.1 Arthrodesis status; Z98.890 Other specified postprocedural states; Z87.19 Personal history of other diseases of the digestive system; Z79.1 Long term (current) use of non-steroidal anti-inflammatories (NSAID); Z79.899 Other long term (current) drug therapy; Z85.46 Personal history of malignant neoplasm of prostate; Z90.79 Acquired absence of other genital organ(s); Z79.82 Long term (current) use of aspirin; Z86.73 Personal history of transient ischemic attack (TIA), and cerebral infarction without residual deficits; Z68.23 Body mass index [BMI] 23.0-23.9, adult
CPT/HCPCS: 36415; 71045; 74019; 74177; 80048; 80053; 81003; 83690; 83735; 85025; 93005; 93010; 94760; 94799; 96365; 96375; 97161; 97165; 97530; 99285-25; A9270; J2270; J2405; J2543; J3475; J7121; Q9967

== ENCOUNTER 2025-01-31 07:30 | Day surgery (SDC) | payer MEDICARE, OTHER ==
[~2025-01-31] VITALS: Ht 182.9 cm; Wt 80.0 kg
[~2025-01-31 07:30] MED LIST changes: +CEFAZOLIN SODIUM 2 GM in SODIUM CHLORIDE 0.9% 100 ML IV SCH; +FIRMAGON80 MG SUB-Q; +IBLOOD GLUCOSE TEST STRIP 1 EA TEST VI PRN; +LACTATED RINGER'S 1,000 ML IV SCH; +LIDOCAINE HCL 1% 5 ML SDV INJ ONE
[2025-01-31 07:52] VITALS: BP 119/80
[2025-01-31] MEDS ORDERED: LIDOCAINE HCL 2% 5 ML SDV ONE (07:52)
--- NOTE | 2025-01-31 09:51 | NUR ---
01/31/25 0951 Lynne Holland 0946: PT ARRIVES TO PACU NONAROUSAL/NONREACTIVE. REPORT RECEIVED FROM CANE PUSHER AND IN MOLD COATER.
[2025-01-31 10:32] VITALS: BP 121/70
--- NOTE | 2025-01-31 11:41 | OR ---
[facility] [address] [place], [place] [address] Signed DATE OF OPERATION: 01/31/2025 SURGEON: Pk Palencia MD PREOPERATIVE DIAGNOSES: 1. Iron deficiency anemia. 2. Underlying metastatic prostate cancer. 3. 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 POSTOPERATIVE DIAGNOSES: 1. 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 2. Incomplete bowel prep, formed stool, extending from rectum to transverse colon. PROCEDURES: 1. Upper endoscopy with biopsy. 2. Balloon dilation of pyloric stricture (18 mm at 6 atms). 3. Colonoscopy beyond splenic flexure. ANESTHESIA: Intravenous sedation; propofol sedation; Pinky Greer CRNA. INDICATION: This 89-year-old man is a patient of Mary Augustine at [facility] as well as Dr. Marcio Knott. He is under treatment for metastatic prostate cancer. The patient is known to me from this past winter at which time, he had perforated jejunal diverticulitis requiring segmental bowel resection with complete recovery from that. He has been identified as having iron deficiency anemia and is referred by Dr. Knott as well as BEATRIZ Choi at the [facility] for consideration of endoscopic evaluation including upper endoscopy and colonoscopy. The risk of bleeding, infection, perforation, and other unforeseen complications were reviewed in detail. He understands and wished to proceed. FINDINGS: Upper endoscopy was notable for retained food within the stomach. Beyond this in the region of the antrum was obvious deformity of the pyloric channel, although no strict neoplasm proper, very dense and difficult outlet, which would not accommodate a standard upper endoscope. Balloon dilation of the pylorus was undertaken to 18 mmHg at 6 atms pressure but still did not allow for complete passage of the scope into the duodenum, only the tip could identify the duodenal bulb which was normal. I suspect this was more Electronically Signed By: PK PALENCIA MD 01/31/25 1141 PATIENT NAME: ERWIN HOROWITZ OPERATIVE REPORT DATE OF : 39 REPORT #: [id number] PHYSICIAN: PK PALENCIA MD PCP: MARY AUGUSTINE PAC REPORT IS CONFIDENTIAL AND NOT TO BE RELEASED WITHOUT AUTHORIZATION [facility] [address] [place] [id number] Signed related to fibrosis and scarring than to actual channel narrowing. This most likely represented peptic disease rather than neoplasm. CLOtest biopsy was negative 20 minutes post procedure. He did have some mild chronic distal esophagitis, but no Schultz's epithelium and no lesion of the stomach to account for anemia otherwise. On colonoscopy, the prep was incomplete. Indeed, I am skeptical that he actually even did a bowel prep. There was well formed stool extending from the rectum proximally. Passage of the scope with irrigation was undertaken to the transverse colon at which point, no further advancement was really possible. That segment of the colon extending from the mid transverse colon to the rectum was free of gross neoplasm. DESCRIPTION OF PROCEDURE: The patient was brought to the endoscopy suite and placed in the lateral decubitus position. He was given intravenous sedation with propofol infusional technique and a bite block was placed. An Olympus video upper endoscope was passed in the hypopharynx. The vocal cords were normal. Scope was advanced to the esophagus. He has had a chronic inflammatory appearance, but no sign of stricture, neoplasm or varices. The scope was then passed to the stomach. Immediately noted was a considerable amount of retained mushy bile-stained gastric contents consistent with gastric outlet obstruction or gastric atony. Irrigation and suctioning were undertaken to minimize the volume within the stomach. The scope was manipulated around this area, ultimately to the antrum which was free of obstructing food material identifying well the pylorus which was slit-like and quite deformed. There is a chronic inflammatory change associated with it. No sign of deep ulceration and no obvious fungating neoplasm. Various maneuvers were undertaken to pass into the pylorus into the duodenum, but they were unsuccessful, though the aperture of the pylorus was preserved. On that basis, a [employer] manometric balloon dilation was undertaken. An 18 mm balloon was passed through the operating channel of the scope and manipulated into and across the pylorus, insufflating it sequentially per manufacture's instructions ultimately to 6 atms for a dilation diameter of 18 mm. The balloon was deflated after a few minutes of insufflation, although this is a small amount of bloody mucosal surface. The aperture appeared to be improved though certainly not normal in size. The scope and the balloon dilator was removed completely and the scope reintroduced. The scope was then passed into the area of the pylorus and unfortunately was still quite fibrotic. It did not accommodate the scope more than a cm or 2; visualization of the bulbar duodenum was noted. A slightly smaller older Olympus upper endoscope was obtained and reintroduced as I have used the smaller diameter scope on previous similar situations, although it past the Electronically Signed By: PK PALENCIA MD 01/31/25 1141 PATIENT NAME: ERWIN HOROWITZ OPERATIVE REPORT DATE OF : 39 REPORT #: [id number] PHYSICIAN: PK PALENCIA MD PCP: MARY AUGUSTINE PAC REPORT IS CONFIDENTIAL AND NOT TO BE RELEASED WITHOUT AUTHORIZATION [facility] [address] [place], [place] [address] Signed short distance, it certainly did not traverse well into the duodenum by any means indicative of chronic fibrotic nature of the pyloric stricture. The scope was then withdrawn and biopsies taken of the antrum for a CLOtest. Retroflexed view was undertaken showing a reasonably normal flap valve. Scope was withdrawn and biopsy was then taken of the distal esophagus. The scope was withdrawn carol removed. Plans were then made for colonoscopy. Digital rectal examination showed some formed firm stool within the rectum. Olympus video colonoscope was passed in the rectum and immediately noted was some formed stool suggestive of lack of bowel prep effort. Various manipulations were undertaken with irrigation and so forth, although there was some formed stool. The scope could be passed beyond this ultimately to the left transverse colon at which point there was no reasonable expectation of passage much further. Irrigation was undertaken. The scope was carefully withdrawn from the mid transverse colon distalward showing no sign of neoplasm, diverticular formation or other abnormality. The scope was removed. CONCLUSION DIAGNOSES: 1. Gastric outlet obstruction likely related to peptic disease and highly probable accounting for anemia. 2. Poor bowel prep (if prepped at all.) No gross lesions from mid transverse colon distalward. PLAN: Remedy of the gastric outlet obstruction would likely be beneficial and in particular may most likely represent the source of his anemia by both iron loss from bleeding from the ulcerated area as well as poor oral intake despite iron supplementation. CT scan may be beneficial to assure there is no surrounding associated neoplasm with this and on occasion a conventional upper GI possibly beneficial as well. Additional efforts at balloon dilation seem unlikely to be beneficial. Review of his medication show he is on a small dose of aspirin daily and celecoxib but is not on any PPI or antiulcer medication. His CLOtest thus far is negative for H pylori so we will be monitoring that closely. As regards to colon, once he has adequate outlet of the stomach, a repeat colonoscopy might be considered after bowel prep. ADDENDUM: IT WAS CONVEYED TO ME AFTER THE PROCEDURE BY HIS DAUGHTER THAT IN THE PAST 4-5 DAYS HE PRESENTED TO THE ER AT [facility] WITH ABDOMINAL PAIN AND A CT WAS PERFORED THAT SHOWED A DISTENDED STOMACH FOR WHICH HE UNDERWENT DECOMPRESSION WITH A NASO GASTRIC TUBE AND ALSO SOME ENEMAS. HE HAS HAD INCREASING ABDOMINAL PAIN PARTICULARLY FOLLOWING MEALS AND THUS THE CURRENT FINDINGS OF GASTRIC OUTLET OBSTRUCTION CONFIRM THE ETIOLOGY OF HIS RECENT ISSUES IN THE EMERGENCY ROOM. I WILL INITIATE PPI MEDICATION AND REVIEW THE CT Electronically Signed By: PK PALENCIA MD 01/31/25 1141 PATIENT NAME: ERWIN HOROWITZ OPERATIVE REPORT DATE OF : 39 REPORT #: [id number] PHYSICIAN: PK PALENCIA MD PCP: MARY AUGUSTINE PAC REPORT IS CONFIDENTIAL AND NOT TO BE RELEASED WITHOUT AUTHORIZATION [facility] [address] [place] [address] Signed MYSELF AND LIKELY PLAN FOR PROMPT OPERATION TO REMEDY THE PROBLEM IN THE NEAR FUTURE. MD NICKY Redman/MODL /[id number] cc: MD Mary Richmond Copies: MARCIO KNOTT MD, ELIZABETH PAC ~ Electronically Signed By: PK PALENCIA MD 01/31/25 1141 PATIENT NAME: ERWIN HOROWITZ OPERATIVE REPORT DATE OF : 39 REPORT #: [id number] PHYSICIAN: PK PALENCIA MD PCP: MARY AUGUSTINE PAC REPORT IS CONFIDENTIAL AND NOT TO BE RELEASED WITHOUT AUTHORIZATION
--- NOTE | 2025-02-03 09:41 | PATH ---
[facility] [facility] [address] [place], [place] [address] Signed SPECIMEN(S): A PYLORIC BIOPSY SPECIMEN(S): B DISTAL ESOPHAGEAL BIOPSY SPECIMEN SOURCE: A. PYLORIC BIOPSY B. DISTAL ESOPHAGEAL BIOPSY CLINICAL HISTORY: Chronic iron deficiency, history of metastatic prostate cancer, gastric outlet obstruction, channel ulceration FINAL PATHOLOGIC DIAGNOSIS: A. Pyloric biopsy: - Superficial ulceration. - Surrounding gastric mucosa shows mild chronic active gastritis and reactive/reparative change. - An immunohistochemical stain for Helicobacter pylori is negative. - Negative for intestinal metaplasia, dysplasia, or malignancy. B. Distal esophagus, biopsy: - Mild acute esophagitis. - A PAS stain for fungal organisms is positive. - Negative for eosinophilic esophagitis, dysplasia, or malignancy. DWS:smn MICROSCOPIC EXAMINATION: Histologic sections of all submitted blocks are examined by light microscopy. These findings, together with the gross examination, support the pathologic diagnosis. GROSS DESCRIPTION: A. The specimen, labeled and designated "Horowitz, pylorus biopsy," is received in formalin and consists of one jain soft tissue fragment, 0.4 cm. Entirely submitted in (A1). B. The specimen, labeled and designated "Horowitz, distal esophageal biopsy," is received in formalin and consists of three jain soft tissue fragments, ranging from 0.1-0.6 cm. Entirely submitted in (B1). VB (under the direct supervision of a pathologist) The Gross Description was prepared using a voice recognition system. The report was reviewed for accuracy; however, sound-alike word errors, addition and/or deletions may occur. If there is any PATIENT NAME: ERWIN HOROWITZ PATHOLOGY DATE OF : 39 REPORT #: [id number] PHYSICIAN: DONA PATHOLOGY PCP: JOSEE AUGUSTINE PAC REPORT IS CONFIDENTIAL AND NOT TO BE RELEASED WITHOUT AUTHORIZATION [facility] [address] [facility] [place], [place] [address] Signed question about this report, please contact Client Services. PERFORMING LABORATORY: Technical component was performed by [email or web address], [address] [place] [id number] (CLIA# [id number]). Professional interpretation was performed by [facility], [address] [place] [phone] (CLIA#: [id number]). Diagnostician: Jacques Carrasco MD Pathologist Electronically Signed 02/03/2025 Copies: ~ PATIENT NAME: ERWIN HOROWITZ PATHOLOGY DATE OF : 39 REPORT #: [id number] PHYSICIAN: DONA PATHOLOGY PCP: JOSEE AUGUSTINE PAC REPORT IS CONFIDENTIAL AND NOT TO BE RELEASED WITHOUT AUTHORIZATION
== END 2025-01-31 10:45 | disposition home or self-care (01) ==
LOC: DS 07:30
PROVIDERS: ATTEND Surgery
PROC: 0DB78ZX Excision of Stomach, Pylorus, Via Natural or Artificial Opening Endoscopic, Diagnostic (ICD-10-PCS; 2025-01-31)
PROC: 0DJD8ZZ Inspection of Lower Intestinal Tract, Via Natural or Artificial Opening Endoscopic (ICD-10-PCS; 2025-01-31)
PROC: 0D768ZZ Dilation of Stomach, Via Natural or Artificial Opening Endoscopic (ICD-10-PCS; principal; 2025-01-31 08:15)
PROC: 0DB58ZX Excision of Esophagus, Via Natural or Artificial Opening Endoscopic, Diagnostic (ICD-10-PCS; 2025-01-31 08:15)
DX: D50.9 Iron deficiency anemia, unspecified (principal); K31.1 Adult hypertrophic pyloric stenosis; K25.9 Gastric ulcer, unspecified as acute or chronic, without hemorrhage or perforation; K29.50 Unspecified chronic gastritis without bleeding; K20.90 Esophagitis, unspecified without bleeding; C61 Malignant neoplasm of prostate; I10 Essential (primary) hypertension; E78.2 Mixed hyperlipidemia; Z79.1 Long term (current) use of non-steroidal anti-inflammatories (NSAID); Z79.82 Long term (current) use of aspirin; Z90.49 Acquired absence of other specified parts of digestive tract
CPT/HCPCS: 00813; 88305; 88312; 88342; C1726; J0688; J2003; J2704; J7121

== ENCOUNTER 2025-02-06 06:20 | Inpatient (IN) | payer MEDICARE, OTHER ==
[~2025-02-06] VITALS: Ht 182.9 cm; Wt 80.0 kg
[~2025-02-06 06:20] MED LIST changes: -CEFAZOLIN SODIUM 2 GM in SODIUM CHLORIDE 0.9% 100 ML IV SCH; -IBLOOD GLUCOSE TEST STRIP 1 EA TEST VI PRN; -LACTATED RINGER'S 1,000 ML IV SCH; -LIDOCAINE HCL 1% 5 ML SDV INJ ONE
[2025-02-07] VITALS (7 sets, daily range): BP systolic 118–129; BP diastolic 57–66
[2025-02-07] MEDS ORDERED: LACTATED RINGER'S 1,000 ML IV SCH ×2 (05:00→15:45)
[2025-02-07] MEDS ORDERED: HEParin SOD (PORCINE) 5,000 UNIT/ML SDV SUB-Q SCH (07:00)
[2025-02-07] MEDS ORDERED: IBLOOD GLUCOSE TEST STRIP 1 EA TEST VI PRN ×2 (07:00→15:45)
[2025-02-07] MEDS ORDERED: CEFAZOLIN SODIUM 2 GM in SODIUM CHLORIDE 0.9% 100 ML IV SCH ×2 (07:00→22:00)
[2025-02-07] MEDS ORDERED: LIDOCAINE HCL 1% 5 ML SDV INJ ONE (07:00)
[2025-02-07 10:00] LABS: BASOPHILS 0.6 % (0.2-1.2); BASOPHILS, ABSOLUTE 0.04 K/uL (0.01-0.08); EOSINOPHILS 2.4 % (0.8-7.0); EOSINOPHILS, ABSOLUTE 0.15 K/uL (0.04-0.54); LYMPHOCYTES 14.1 % (21.8-53.1); MCH 26.0 PG (25.7-32.2); MCHC 32.0 g/dL (32.3-36.5); MCV 81.0 fL (79.0-92.2); MONOCYTES 9.2 % (5.3-12.2); MONOCYTES, ABSOLUTE 0.58 K/uL (0.30-0.82); NEUTROPHILS 73.1 % (34.0-67.9); NEUTROPHILS, ABSOLUTE 4.60 K/uL (1.78-5.38); RBC 4.47 M/uL (4.63-6.08)
[2025-02-07 10:41] LABS: ABO O; ANTIBODY SCREEN NEGATIVE; RH POSITIVE
[2025-02-07] MEDS ORDERED: KETAMINE in NS 50 MG/5 ML SYR ONE (11:57)
[2025-02-07] MEDS ORDERED: ROCURONIUM BROMIDE 50 MG/5 ML SYR ONE (11:57)
[2025-02-07] MEDS ORDERED: LIDOCAINE HCL 2% 5 ML SDV ONE (11:57)
[2025-02-07] MEDS ORDERED: fentaNYL citrate 100 MCG/2 ML VIAL ONE (11:57)
[2025-02-07] MEDS ORDERED: LIDOCAINE HCL 1% 30 ML SDV ONE (11:57)
[2025-02-07] MEDS ORDERED: SEVOFLURANE 250 ML BTL INH ONE (12:54)
[2025-02-07] MEDS ORDERED: DEXAMETHASONE SOD PHOS 4 MG/ML VIAL ONE ×2 (13:51→14:26)
--- NOTE | 2025-02-07 13:57 | NUR ---
INTO PTS ROOM FOR HOUR ROUNDS. PT DECLINES NEED FOR ADDITIONAL WARM BLANKETS OR USE OF URINAL. SQ HEPARIN INJ GIVEN IN RLQ PER EMAR/ORDER. IV FLUIDS COMPLETED. 2ND BAG OF FLUIDS HUNG WITH PASTRY CHEF APPROVAL, PT IS GETTING READY TO HEAD BACK TO OR.
[2025-02-07] MEDS ORDERED: SODIUM CHLORIDE 0.9% 60 ML IV ONE (14:24)
[2025-02-07] MEDS ORDERED: SUGAMMADEX SODIUM 200 MG/2 ML ML ONE (14:24)
[2025-02-07] MEDS ORDERED: Ropivacaine HCl 0.5% 30 ML VIAL ONE (14:24)
[2025-02-07] MEDS ORDERED: KETOROLAC TROMETHAMINE 15 MG/ML VIAL IV PRN (15:45)
[2025-02-07] MEDS ORDERED: MORPHINE SULFATE 4 MG/ML VIAL IV PRN (15:45)
[2025-02-07] MEDS ORDERED: fentaNYL citrate 50 MCG/ML SDV IV PRN (15:45)
[2025-02-07] MEDS ORDERED: NALOXONE HCL 0.4 MG SYR IV PRN (15:45)
[2025-02-07] MEDS ORDERED: PROCHLORPERAZINE EDISYLATE 10 MG/2 ML VIAL IV PRN (15:45)
--- NOTE | 2025-02-07 16:08 | NUR ---
02/07/25 1608 Sheets,Ileana 1531 PT ARRIVED TO PACU ON 6L VIA MASK, PT ASLEEP BUT STARTS TO SWALLOW. VSS. RESP EVEN AND UNLABORED. 1532 O2 MASK REMOVED, PT ABLE TO FOLLOW COMMANDS TO OPEN MOUTH. PT REPORTS TOLERABLE PAIN. 1535 O2 MASK REMOVED. MD AT BEDSIDE. 1544 PT REPORTS NAUSEA, AND EDUCATION GIVEN ON NG TUBE. MEDICATION GIVEN PER EMAR. 1558 O2 O2 SAT DECREASED TO 91-88%, 2L OXYMASK PLACED. DEEP BREATHING ENCOURAGED. RN HELPS PT BRACE ABD WITH PILLOW AND ENCOURAGES COUGHING, WEAK COUGH NOTED. 1605 PT EATING ICE CHIPS IN SEMI FOWLERS, PT TOLERATED WELL. O2 INCREASED TO HIGH 90S, O2 REMOVED.
[2025-02-07] MEDS ORDERED: ACETAMINOPHEN 1,000 MG/100 ML VIAL IV ONE (16:15)
--- NOTE | 2025-02-07 17:18 | NUR ---
PT TO ROOM AT 1630 VIA BED ANSWERS QUESTIONS APPROPRIATELY OTHERWISE RESTS WITH EYES CLOSED. 2 DAUGHTERS ARE PRESENT WITH HIM. FRESH H20 AND ICE CHIPS TO BEDSIDE PT TAKES SIP THEN CHEWS ON ICE. PT ORIENTED TO CALL LIGHT AGREES TO CALL FOR ANY NEEDS. AGREES HE IS COMFORTABLE
--- NOTE | 2025-02-07 17:33 | NUR ---
PT AGREES HE IS COMFORTABLE DAUGHTERS CONTINUE AT BEDSIDE
--- NOTE | 2025-02-07 17:56 | NUR ---
PT SITTING UP IN BED EATING JELLO. CONTINUES TO DENY DISCOMFORT FAMILY PRESENT X3
--- NOTE | 2025-02-07 19:05 | NUR ---
REPORT RECEIVED FROM JONAH PLATT. pt RESTING IN THE BED. SECOND SKIN CHECK DONE WITH JIMENA PLATT. pt NG CONNECTED TO LIWS. pt IV ASSESSED, WNL. pt DENIES ANY OTHER NEEDS AT THIS TIME. CALL LIGHT WITHIN REACH.
--- NOTE | 2025-02-07 19:27 | NUR ---
GOT PATIENT A WARM BLANKET. FAMILY IN ROOM.
--- NOTE | 2025-02-07 21:50 | NUR ---
ASSESSMENT DONE. FINAL POST-OP VITAL SIGNS DONE. pt RESTING IN THE BED. pt DENIES ANY PAIN AT THIS TIME. MIDLINE DRESSING CDI. BOWEL TONES ACTIVE. NG TUBE ON LIWS. IV ABX INFUSING PER ORDER. IVF INFUSING PER ORDER. pt DENIES ANY OTHER NEEDS AT THIS TIME. ICE CHIPS PROVIDED. SCD'S ON. CALL LIGHT WITHIN REACH.
--- NOTE | 2025-02-07 23:30 | NUR ---
IN RM TO START NEW BAG OF IVF. ICE CHIPS PROVIDED FOR COMFORT. pt DENIES ANY OTHER NEEDS THIS TIME. CALL LIGHT WITHIN REACH.
[2025-02-08] VITALS (11 sets, daily range): BP systolic 109–134; BP diastolic 54–71
--- NOTE | 2025-02-08 01:50 | NUR ---
IN RM TO DO VITAL SIGNS AND DO ASSESSMENT. MIDLINE IS CDI. NG TUBE IS CONNECTED TO LIWS. pt DENIES ANY OTHER NEEDS AT THIS TIME. CALL LIGHT WITHIN REACH.
--- NOTE | 2025-02-08 03:19 | NUR ---
pt RESTING IN THE BED WITH EYES CLOSED. RR EVEN AND UNLABORED. CALL LIGHT WITHIN REACH. NG TUBE ON LIWS.
[2025-02-08 05:29] LABS: BASOPHILS 0.2 % (0.2-1.2); EOSINOPHILS 0 % (0.8-7.0); LYMPHOCYTES 9.2 % (21.8-53.1); MCH 26.1 PG (25.7-32.2); MCHC 31.9 g/dL (32.3-36.5); MCV 81.8 fL (79.0-92.2); MONOCYTES 2.9 % (5.3-12.2); NEUTROPHILS 87.2 % (34.0-67.9); RBC 3.79 M/uL (4.63-6.08)
[2025-02-08 05:40] LABS: GLOMERULAR FILTRATION RATE,EST 83.0 mL/min (>60); UREA NITROGEN 16.0 mg/dL (7-18)
--- NOTE | 2025-02-08 07:20 | NUR ---
RECIEVED REPORT FROM LC CHRISTY. PT RESTING IN BED WITH EYES OPEN. RR EVEN AND UNLABORED. CALL LIGHT AND PERSONAL BELONGINGS ARE WITHIN REACH.
--- NOTE | 2025-02-08 08:50 | NUR ---
IN ROOM WITH LC BENITEZ FOR MORNING ASSESSMENT. PT IS LAYING IN BED WITH HEAD ELEVATED, NG TUBE SECURELY ON FACE ON INTERMITTENT SUCTION. IV IS RUNNING LR AT 85 ML/HR. DAUGHTER IS AT BEDSIDE. FULL ASSESSMENT COMPLETE AND DOCUMENTED IN CHART. BOTH IV'S FLUSHED WITH 10 ML NORMAL SALINE. LLE HAS 3+ PITTING EDEMA. DAUGHTER AND PT REPORT THIS IS DUE TO A PRIOR VASCULAR SURGERY AND THAT THE EDEMA IS CHRONIC. PT IS ON ROOM AIR. CARDIAC S1 AND S2 AUSCULTATED; LUNGS CLEAR THROUGHOUT. DRESSING TO ABDOMEN IS CLEAN, DRY AND INTACT. BOWEL TONES ACTIVE. LANDERS CATHETER DRAINING YELLOW URINE. PT WITH NO C/O PAIN OR NAUSEA. CALL LIGHT AND PERSONAL BELONGINGS ARE WITHIN REACH.
--- NOTE | 2025-02-08 09:17 | NUR ---
VISITED DURING SPIRITUAL CARE ROUNDS. PT SUPPORTED BY FAMILY IN ROOM, REQUESTS COMPLIANCE AIDE VISIT. DEBRANDER PROVIDED SUPPORTIVE PRESENCE, HOSPITALITY, PRAYER, FACILITATED CONNECTION WITH HARRY LEADER. PT AND FAMILY EXPRESS GRATITUDE.
--- NOTE | 2025-02-08 09:45 | NUR ---
PT SITTING IN BED WITH EYES OPEN. FAMILY IN ROOM. RR EVEN AND UNLABORED, NG TUBE IN PLACE ON INTERMITTENT SUCTION. CALL LIGHT AND PERSONAL BELONGINGS ARE WITHIN REACH.
--- NOTE | 2025-02-08 10:05 | NUR ---
PT RESTING IN BED WITH EYES OPEN. NG TUBE IN PLACE. FAMILY IN ROOM. CALL LIGHT AND PERSONAL BELONGINGS ARE WITHIN REACH.
--- NOTE | 2025-02-08 11:09 | NUR ---
PATIENT IS LYING IN BED WITH EYES OPEN AND RESPIRATIONS ARE EVEN AND UNLABORED. NG TUBE CONNECTED TO INTERMITTENT WALL SUCTION. PATIENT IS SPEAKING WITH A VISITOR WHO IS SITTING AT BEDSIDE. CALL LIGHT AND PERSONAL BELONGINGS ARE WITHIN REACH.
--- NOTE | 2025-02-08 11:24 | NUR ---
UR CLINICAL REVIEW: 2 MN FOR VERSALUS-PER CABLE TELEVISION PROGRAM DIRECTOR MEETS INPT FOR PYLOROPLASTY WITH NEED FOR PAIN CONTROL, BOWEL REST AND IVF. MEDICARE INPT 02/07/25 @ 1607 ORDER MATCHES REG NO AUTH REQUIRED PER MEDICARE GUIDELINES DISCHARGE TO HOME WHEN STABLE
--- NOTE | 2025-02-08 11:32 | NUR ---
ALERT AND ORIENTED IN BED. FAMILY MEMBER AT BESIDE. NG TUBE IN PLACE. PATIENT LIVES IN HOUSE WITH 1 STEP TO GET INSIDE, BUT HAS HANDRAILS ON BOTH SIDES FOR SAFETY. HE HAS A WALKER AND CANE. HE HAS DIFFICULTY HEARING AND SEEING SO HE NO LONGER DRIVES, FAMILY ASSISTS. PATIENT'S PCP IS DR. ALAMO AT [facility]. DENIES ANY DIFFICULTY PAYING UTILTIES OR FOR FOOD OR MEDICATIONS. PATIENT STATES HIS PLAN IS TO RETURN TO HOME WHEN MEDICALLY READY. NO KNOWN CM NEEDS AT THIS TIME.
--- NOTE | 2025-02-08 12:06 | NUR ---
PT SITTING UP IN CHAIR WITH BLE ELEVATED. NG TUBE SECURELY ON FACE. CLEAR APPLE ENSURE AND CHICKEN BROTH PROVIDED. CALL LIGHT AND PERSONAL BELONGINGS ARE WITHIN REACH.
--- NOTE | 2025-02-08 13:38 | NUR ---
PT LAYING IN BED WITH EYES OPEN, VISITING WITH DAUGHTER IN ROOM. NG TUBE SECURELY IN FACE, RR EVEN AND UNLABORED. CALL LIGHT AND PERSONAL BELONGINGS ARE WITHIN REACH.
--- NOTE | 2025-02-08 14:24 | NUR ---
PT LAYING IN BED WITH HEAD ELEVATED. NG TUBE SECURELY IN PLACE ON INTERMITTENT SUCTION. PT DENIES PAIN AT THIS TIME. IV SITES ARE INTACT. BOWEL TONES ACTIVE IN ALL FOUR QUADRANTS. PT DENIES ANY NAUSEA. LANDERS CARE COMPLETE AT THIS TIME. ABDOMINAL DRESSING IS CLEAN, DRY AND INTACT. LC BENITEZ, PROVIDED PT WITH WARM BLANKET. CALL LIGHT AND PERSONAL BELONGINGS ARE WITHIN REACH, PT DENIES ANY OTHER NEEDS AT THIS TIME.
--- NOTE | 2025-02-08 15:17 | NUR ---
PATIENT IS LYING IN BED WITH EYES CLOSED AND RESPIRATIONS ARE EVEN AND UNLABORED. NG TUBE IN PLACE. PATIENT IS ON ROOM AIR WITH THE CPOX AT BEDSIDE. CALL LIGHT AND PERSONAL BELONGINGS ARE WIHTIN REACH.
--- NOTE | 2025-02-08 16:09 | NUR ---
PT RESTING IN BED WITH EYES OPEN. NG TUBE SECURELY IN PLACE. RR EVEN AND UNLABORED. DEDE ALEX, IN ROOM TAKING VS. CALL LIGHT AND PERSONAL BELONGINGS ARE WITHIN REACH.
--- NOTE | 2025-02-08 16:35 | OR ---
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 PROCEDURES: Exploration of the abdomen and Heineke-Mikulicz pyloroplasty. ANESTHESIA: General endotracheal; Pinky Greer CRNA INDICATION: This 89-year-old white man is a patient of Mary Augustine at [facility] and is a [employer] member. He is known to have metastatic prostate cancer to bone. He is a patient of Dr. Daniel as well. He was referred with issues of anemia and underwent colonoscopy (normal) as well as upper endoscopy on January 31, 2025. He was found to have no evidence of neoplasm of the esophagus, stomach, or elsewhere, but did have extremely tight pyloric stenosis. Balloon dilation to 18 mm with a PET balloon dilator system at 6 atmospheres failed to dilate the stenosis enough to allow for passage of the endoscope, though a glimpse of the duodenal bulb was noted. There was no sign of actual ulcer there. Blind biopsies were taken of pyloric channel and the bulb and were found to be benign. The patient has been started on PPI medication. It appears that he has a dense pyloric stenosis, which is accounting for his poor eating and oral intake tolerance as well as the findings of retained food on time of his recent upper endoscopy. I have offered remedy of his pyloric stenosis either by a pyloroplasty or gastrojejunal bypass. He and his family have pondered these options and wished to proceed. They understand the risk of bleeding, infection, failure of whatever method is chosen, recurrence of disease, and other unforeseen complications and wished to proceed. FINDINGS: Notably had several midline incisions including the upper abdomen. Upon entry into the abdomen through an epigastric incision, there were a few if any upper abdominal adhesions. The stomach was not excessively dilated and the duodenum appeared normal. Electronically Signed By: PK PALENCIA MD 02/08/25 1635 PATIENT NAME: ERWIN HOROWITZ OPERATIVE REPORT DATE OF : 39 REPORT #: [id number] PHYSICIAN: PK PALENCIA MD PCP: ROSSY ALAMO MD REPORT IS CONFIDENTIAL AND NOT TO BE RELEASED WITHOUT AUTHORIZATION [facility] [address], [place] [address] Signed There was a firm ring-like pylorus, which was dense and absolutely the source of his gastric outlet obstruction. As the duodenum was soft as was the pre-pyloric antrum, a pyloroplasty was easily able to be accomplished without need for gastrojejunal anastomosis. It was accomplished in a Heineke-Mikulicz configuration and at conclusion, good outlet of the stomach is noted. DESCRIPTION OF PROCEDURE: The patient was brought to the operating room, given a general endotracheal anesthetic. A Singh catheter was placed; he had some narrowing of the urethra and therefore a small pediatric tube was used. After satisfactory general endotracheal anesthesia and placement of the Singh catheter, the abdomen was prepared with a chlorhexidine solution and draped sterilely. He did receive preoperative antibiotics. Sequential compression device stockings were used and heparin subcutaneously administered. The midline had prior scarring from incisions several in fact and incision was extended from the xiphoid to the supraumbilical area. The abdominal wall fat was not excessively thick. The abdomen was entered without problem and despite multiple abdominal incisions, there was no evidence of significant adhesions. The stomach was examined, found to be nondilated particularly and the duodenum was soft. Gentle palpation of the pylorus showed there to be a dense ring-like stricture of the area. Given the particulars of this patient's situation, provision of good gastric outlet was the main focus of management and it appeared that given the pre-pyloric antrum and post pyloric duodenum were soft and supple, that a pyloroplasty would be quite adequate for providing gastric passage. On that basis, a Heineke-Mikulicz pyloroplasty was deemed advisable. Stay sutures of 3-0 silk were placed first on the stomach, then on the duodenum, then superiorly and inferiorly at the pylorus itself. Using electrocautery, the duodenal and gastric serosal surfaces were divided and extending across the muscular pylorus, which was thickened. Examination showed no sign of actual ulcer at this time. The longitudinal duodenotomy and gastrotomy were then closed transversely in a two-layer technique of interrupted 3-0 Vicryl for the mucosal layer and interrupted 3-0 silk suture for the serosal layer. A nasogastric tube that had been placed was positioned and under saline submersion, insufflated with a fair amount of air. This showed no sign of leakage or other problem. Good passage of air across to the duodenum was noted as well. A nasogastric tube was fixed into position after decompressing the stomach. Plans were then made for closure. The midline fascia was reapproximated with running bidirectional #1 PDS suture. Subcutaneous tissue irrigated and skin closed with running subcuticular 3-0 Vicryl. Steri-Strips were applied as well as an Acticoat dressing. The patient was extubated and transferred to the recovery room in good condition having suffered no complication. Sponge, needle, and instrument counts reported as correct x3. Electronically Signed By: PK PALENCIA MD 02/08/25 1635 PATIENT NAME: ERWIN HOROWITZ OPERATIVE REPORT DATE OF : 37 REPORT #: [id number] PHYSICIAN: PK PALENCIA MD PCP: ROSSY ALAMO MD REPORT IS CONFIDENTIAL AND NOT TO BE RELEASED WITHOUT AUTHORIZATION [address] [address] Signed Pk Palencia MD JM/MODL /[id number] cc: Mary Daniel MD Copies: MARY AUGUSTINE ROBERT C MD ~ Electronically Signed By: PK PALENCIA MD 02/08/25 1635 PATIENT NAME: ERWIN HOROWITZ OPERATIVE REPORT DATE OF : 37 REPORT #: [id number] PHYSICIAN: PK PALENCIA MD PCP: ROSSY ALAMO MD REPORT IS CONFIDENTIAL AND NOT TO BE RELEASED WITHOUT AUTHORIZATION
[2025-02-08] MEDS ORDERED: FLUCONAZOLE/SOD CHLORIDE 100 ML IV SCH (17:00)
--- NOTE | 2025-02-08 18:35 | NUR ---
PATIENT IS LYING IN BED WITH HOB ELEVATED. PATIENT WITH EYES OPEN AND RESPIRATIONS ARE EVEN AND UNLABORED. PATIENT WITH SEVERAL VISITORS IN THE ROOM AROUND BEDSIDE. CALL LIGHT AND PERSONAL BELONGINGS ARE WITHIN REACH.
--- NOTE | 2025-02-08 19:05 | NUR ---
REPORT RECEIVED FROM EMMANUEL PLATT. pt RESTING IN THE BED. FAMILY IN RM. pt DENIES ANY NEEDS AT THIS TIME. CALL LIGHT WITHIN REACH. BOARD UPDATED.
--- NOTE | 2025-02-08 19:25 | NUR ---
DAUGHTER HELPED ME GET HER DAD UP TO THE CHAIR TO THIS AFTERNOON. BED LINENS CHANGED.
--- NOTE | 2025-02-08 19:31 | NUR ---
PATIENT WANTED TO WAIT UNTIL TOMORROW FOR A SHOWER TO SEE IF THEY TAKE THE NG TUBE OUT OR NOT. PATIENT DID HIS ORAL CARE AND WASHED HIS FACE.
--- NOTE | 2025-02-08 21:00 | NUR ---
ASSESSMENT AND VITAL SIGNS DONE. pt BOWEL TONES ACTIVE. NG TUBE ON LIWS. IV ASSESSED, WNL. IV ABX INFUSING PER ORDER. IVF INFUSING PER ORDER. SCD'S ON. CPOX ON. pt DENIES ANY OTHER NEEDS AT THIS TIME. CALL LIGHT WITHIN REACH. MIDLINE INCISION CDI.
--- NOTE | 2025-02-08 23:15 | NUR ---
pt RESTING IN THE BED. pt DENIES ANY OTHER NEEDS AT THIS TIME. CALL LIGHT WITHIN REACH.
[2025-02-09] VITALS (9 sets, daily range): BP systolic 125–150; BP diastolic 68–96
--- NOTE | 2025-02-09 01:35 | NUR ---
pt RESTING IN THE BED. pt DENIES ANY OTHER NEEDS AT THIS TIME. CALL LIGHT WITHIN REACH.
--- NOTE | 2025-02-09 03:58 | NUR ---
pt CALLED FOR LEAKING IV. pt LANDERS FLUSHED NO LEAKING. pt BED LINENS CHANGED. BRIEF PLACED ON pt. pt DENIES ANY OTHER NEEDS AT THIS TIME. CALL LIGHT WITHIN REACH. pt
--- NOTE | 2025-02-09 06:25 | NUR ---
pt ASSESSMENT AND VITAL SIGNS DONE. pt REPOSITIONED IN THE BED. NG CANISTEER EMPTIED. LANDERS EMPTIED. pt DENIES ANY OTHER NEEDS AT THIS TIME. CALL LIGHT WITHIN REACH. BOWEL TONES ACTIVE.
--- NOTE | 2025-02-09 07:03 | NUR ---
RECIEVED REPORT FROM LC LOPEZ. PT IS RESTING IN BED WITH EYES CLOSED, LAYING ON SIDE. NG TUBE IS IN PLACE. RR EVEN AND UNLABORED CALL LIGHT AND PERSONAL BELONGINGS ARE WITHIN REACH.
--- NOTE | 2025-02-09 08:06 | NUR ---
PT RESTING IN BED WITH EYES CLOSED. NG TUBE IN PLACE. DAUGHTER IN ROOM. RR EVEN AND UNLABORED. CALL LIGHT AND PERSONAL BELONGINGS ARE WITHIN REACH.
--- NOTE | 2025-02-09 09:03 | NUR ---
DR PALENCIA AT BEDSIDE AND REMOVED PATIENT'S NG TUBE. PATIENT SITTING UP IN BED VISITING WITH FAMILY AT BEDSIDE. PATIENT MEDICATED PER EMAR. PATIENT WITHOUT FURTHER NEEDS AT THIS TIME. CALL LIGHT AND PERSONAL BELONGINGS ARE WITHIN REACH.
[2025-02-09] MEDS ORDERED: OMEPRAZOLE20 MG PO (09:34)
[2025-02-09] MEDS ORDERED: TYLENOL325 MG PO (09:36)
--- NOTE | 2025-02-09 09:44 | NUR ---
PATIENT IS IN BED AT THIS TIME, SUBWAY TRAIN OPERATOR CHARTED VITALS AND I&O'S, DAUGHTER IN ROOM, FRESH WATER, CALL LIGHT WITH IN REACH AND NOTHING ELSE NEEDED AT THIS TIME.
--- NOTE | 2025-02-09 10:20 | NUR ---
PATIENT LANDERS REMOVED PER ORDER. PATIENT STOOD WITH THIS RN AND LC LYNCH AT BEDSIDE AND USED URINAL. PATIENT WITH 10ML OF URINE OUTPUT AT THIS TIME. PATIENT BACK TO BED AND IS WITHOUT FURTHER NEEDS. IV FLUIDS INFUSING PER ORDER. CALL LIGHT AND PERSONAL BELONGINGS ARE WITHIN REACH. DELEGATED TO DEDE CAPPS TO ASSIST PATIENT WITH WALK IN THE HALLS.
--- NOTE | 2025-02-09 10:54 | NUR ---
MED REC COMPLETE
--- NOTE | 2025-02-09 11:17 | NUR ---
INTO SEE PATIENT. DAUGHTER AT BEDSIDE. PATIENT WALKING AROUND. PATIENT WILL GO HOME WITH FAMILY WHEN MEDICALLY READY FOR DISCHARGE. NO FUTHER CM NEEDS TODAY.
--- NOTE | 2025-02-09 11:47 | NUR ---
DC REVIEW: NEED FOR IV FLUIDS, IV MEDICATIONS, DC NG TUBE, ALLOW FOR SIPS. SLOW PROGRESSION OF DIET. PLAN TO DC TO HOME WHEN MEDICALLY READY NO BOWEL FUNCTION YET, UNABLE TO ADVANCE DIET AT THIS TIME ADD: PENDING
--- NOTE | 2025-02-09 11:50 | NUR ---
PATIENT SITTING UP IN BED VISTING WITH HIS DAUGHTER AT BEDSIDE. IV FLUIDS INFUSING PER ORDER. PATIENT WITHOUT FURTHER NEEDS AT THIS TIME. CALL LIGHT AND PERSONAL BELONGINGS ARE WITHIN REACH.
--- NOTE | 2025-02-09 12:55 | NUR ---
PATIENT RESTING IN BED. PATIENT REPORTS HE DID NOT RECIEVE A LUNCH. CLEAR LIQUIDS OF APPLE JUICE, CHICKEN BROTH, ORANGE JELLO, CLEAR APPLE ENSURE PROVIDED BY THIS RN AND LC LYNCH. PATIENT DENIES WANTING TO SIT UP IN HIS CHAIR FOR LUNCH. SCD'S TURNED ON. IV FLUIDS INFUSING PER ORDER. PATIENT WITHOUT FURTHER NEEDS AT THIS TIME. CALL LIGHT AND PERSONAL BELONGINGS ARE WITHIN REACH.
--- NOTE | 2025-02-09 16:18 | NUR ---
DEDE MORENO, IN ROOM ASSISSTING PT TO BATHROOM.
--- NOTE | 2025-02-09 17:04 | NUR ---
PATIENT IN BED AT THIS TIME. DEDE GLEZ AND DEDE WATERMAN ASSISTED PATIENT BACK TO BED FROM BATHROOM. CALL LIGHT WITHIN REACH, NO FURTHER NEEDS.
--- NOTE | 2025-02-09 17:50 | NUR ---
NEW ALLEVYNS PLACED TO PATIENT'S BOTTOM TO HELP PREVENT SKIN BREAKDOWN. PATIENT REPORTS RELIEF OF DISCOMFORT. PATIENT WITHOUT FURTHER NEEDS AT THIS TIME. CALL LIGHT AND PERSONAL BELONGINGS ARE WITHIN REACH.
--- NOTE | 2025-02-09 18:15 | NUR ---
PT SITTING IN BED WITH DINNER ITEMS. HOB IS ELEVATED. FAMILY IS AT BEDSIDE, CALL LIGHT AND PERSONAL BELONGINGS ARE WITHIN REACH
--- NOTE | 2025-02-09 18:48 | NUR ---
PATIENT SITTING UP IN HIS BED WITH HIS GRANDDAUGHTER AT BEDSIDE. PATIENT REPORTS HAVING DIFFICULTY SLEEPING AND REQUESTING TO TAKE HIS HOME MEDICATION. DR PALENCIA NOTIFIED OF PATIENT'S REQUEST. STATES THAT HES OKAY WITH PATIENT TAKING HIS HOME NIGHT TIME MEDICATION. WITH NO FURTHER ORDERS AT THIS TIME. CALL ENDED.
--- NOTE | 2025-02-09 19:15 | NUR ---
REPORT RECEIVED FROM LC DAMIAN. PATIENT RESTING IN BED COMFORTABLY, RESPIRATIONS UNLABORED AND EVEN. MIDLINE INCISION DRESSING VISUALIZED WITH RICKIE, NO NEW DRAINIAGE NOTED, PINPOINT SHADOWING. PATIENT DENIES NEEDS, CALL LIGHT IN REACH. PATIENT REPOSITIONED.
--- NOTE | 2025-02-09 20:35 | NUR ---
VS OBTAINED AND RECORDED, ASSESSMENT COMPLETED. PT DENIES PAIN. NEW IVF BAG HUNG, INFUSING WITHOUT DIFFICULTY. SCD'S ON. ROOM TIDIED. PT DENIES FURTHER NEEDS, CALL LIGHT IN REACH.
--- NOTE | 2025-02-09 21:30 | NUR ---
PER RT, PATIENT OKAY TO NOT HAVE CPOX MONITOR.
--- NOTE | 2025-02-09 22:27 | NUR ---
ROUNDED ON PATIENT, PATIENT RESTING WITH EYES CLOSED, RESPIRATIONS EVEN AND UNLABORED, IVF CONTINUING TO INFUSE PER ORDER, WNL. NO NEEDS IDENTIFIED, CALL LIGHT IN REACH
[2025-02-10] VITALS (7 sets, daily range): BP systolic 143–153; BP diastolic 70–85
--- NOTE | 2025-02-10 00:45 | NUR ---
ROUNDED ON PATIENT, PATIENT RESTING WITH EYES CLOSED, RESPIRATIONS EVEN AND UNLABORED. SCD ON PATIENT, ADJUSTED. IVF CONTINUING TO INFUSE PER ORDER. NO NEEDS, CALL LIGHT IN REACH
--- NOTE | 2025-02-10 01:33 | NUR ---
PT CALLED TO USE BATHROOM, VOIDED STANDING AT BEDSIDE WITH 1 PA FWW. BACK IN BED WITH HELP, NOW RESTING.
--- NOTE | 2025-02-10 03:15 | NUR ---
PT CALLED TO USE BATHROOM. 1 PA FWW OOB FOR URINAL USE, VOIDED AND LAYING BACK IN BED.
--- NOTE | 2025-02-10 03:28 | NUR ---
ROUNDED ON PATIENT, PATIENT WOKE TO RN ENTERING ROOM. RESPIRATIONS EVEN AND UNLABORED. HE DENIES ANY NEEDS, CALL LIGHT IN REACH
--- NOTE | 2025-02-10 05:27 | NUR ---
CALL LIGHT ANSWERED, PATIENT STOOD TO EDGE OF BEDSIDE TO USE URINAL, BACK TO BED WITHOUT DIFFICULTY. VS OBTAINED AND RECORDED, INTAKE AND OUTPUT DOCUMENTED. ABD ASSESSMENT COMPLETED, BOWEL TONES ACTIVE. MIDLINE INCISION WITH NO NEW DRAINAGE NOTED. PATIENT DENIES ANY PAIN. HE DENIES FURTHER NEEDS, CALL LIGHT IN REACH
--- NOTE | 2025-02-10 07:12 | NUR ---
REPORT RECIEVED FROM LC DIXON. PATIENT RESTING IN BED, AWAKE. PATIENT DENIES WANTING TO GET UP TO THE CHAIR "JUST YET". IV FLUIDS INFUSING PER ORDER. PATIENT WITHOUT FURTHER NEEDS AT THIS TIME. CALL LIGHT AND PERSONAL BELONGINGS ARE WITHIN REACH.
--- NOTE | 2025-02-10 08:01 | NUR ---
PATIENT UP TO CHAIR. KITCHEN CALLED FOR BREAKFAST TRAY FOR PATIENT. NEW BAG OF IV FLUIDS INFUSING PER ORDER. FRESH ICE WATER AND HOT TEA PROVIDED TO PATIENT. PATIENT DAUGHTER AT BEDSIDE. PATIENT WITHOUT FURTHER NEEDS AT THIS TIME. CALL LIGHT AND PERSONAL BELONGINGS ARE WITHIN REACH.
--- NOTE | 2025-02-10 09:20 | NUR ---
PATIENT MEDICATED PER EMAR. PATIENT SITTING UP IN HIS CHAIR FINISHING HIS BREAKFAST. PATIENT DENIES ANY PAIN OR NAUSEA WITH PO INTAKE. PATIENT WITH FAMILY AT BEDSIDE. PATIENT WITHOUT FURTHER NEEDS AT THIS TIME. CALL LIGHT AND PERSONAL BELONGINGS ARE WITHIN REACH.
--- NOTE | 2025-02-10 09:59 | NUR ---
INTO SEE PATIENT. SITTING IN CHAIR TALKING WITH FAMILY. PATIENT STATES HE IS STARTING TO FEEL BETTER. PATIENT TO GO HOME DAUGTHER WHEN MEDICALLY CLEARED FOR DISCHARGE. IMM COMPLETED. NO FUTHER CM NEEDS.
--- NOTE | 2025-02-10 10:05 | NUR ---
PATIENT SITTING UP IN HIS CHAIR. WITH HIS DAUGHTER AT BEDSIDE. PATIENT IS WITHOUT ANY NEEDS AT THIS TIME. CALL LIGHT AND PERSONAL BELONGINGS ARE WITHIN REACH.
--- NOTE | 2025-02-10 10:22 | NUR ---
PATIENT IN BED AT THIS TIME. CORE MAKER HELPER CHARTED VITALS AND I&O'S. CALL LIGHT WITHIN REACH, NO FURTHER NEEDS AT THIS TIME.
[2025-02-10] MEDS ORDERED: PANTOPRAZOLE SODIUM 40 MG TABEC PO SCH (11:35)
[2025-02-10] MEDS ORDERED: ACETAMINOPHEN 500 MG TAB PO PRN (11:45)
[2025-02-10] MEDS ORDERED: HYDROCODONE/ACETA 5/325 TAB PO PRN (11:45)
--- NOTE | 2025-02-10 12:13 | NUR ---
PATIENT MEDICATED PER EMAR. PATIENT SITTING UP IN BED EATING LUNCH (PER PATIENT REQUEST). PATIENT WITHOUT FURTHER NEEDS. PATIENT DAUGHTER AT BEDSIDE. CALL LIGHT AND PERSONAL BELONGINGS ARE WITHIN REACH.
--- NOTE | 2025-02-10 13:34 | NUR ---
PATIENT IS IN BED AT THIS TIME, SALESPERSON FASHION ACCESSORIES CHARTED VITALS AND I&O'S, DAUGHTER IN ROOM, CALL LIGHT WITH IN REACH AND NOTHING ELSE NEEDED AT THIS TIME.
--- NOTE | 2025-02-10 14:33 | NUR ---
PATIENT RESTING IN BED WITH HOB ELEVATED. PATIENT'S EYES ARE CLOSED. EVEN AND UNLABORED RESPIRATIONS NOTED. CALL LIGHT AND PERSONAL BELONGINGS ARE WITHIN REACH.
--- NOTE | 2025-02-10 16:41 | NUR ---
PATIENT RESTING IN BED WITH HIS EYES CLOSED. EVEN AND UNLABORED RESPIRATIONS NOTED. CALL LIGHT AND PERSONAL BELONGINGS ARE WITHIN REACH.
--- NOTE | 2025-02-10 17:29 | NUR ---
PATIENT IN CHAIR AT THIS TIME. THIS GROUND SOURCE HEAT PUMP TECHNICIAN ASSISTED PATIENT INT STANDING TO USE THE URINAL, THIS GROUND SOURCE HEAT PUMP TECHNICIAN ALSO ASSISTED PATIENT TO CHAIR FOR DINNER. CALL LIGHT WITHIN REACH, NO FURTHER NEEDS AT THIS TIME.
--- NOTE | 2025-02-10 18:46 | NUR ---
PATIENT IS IN BED AT THIS TIME, TOBACCO FEEDER CATCHER CHARTED VITALS AND I&O'S, PATIENT STATED HE WANTED A SHOWER TOMORROW, BUT I BROUGHT HIM BED BATH WIPES AND A SHOWER CAP JUST INCASE. CALL LIGHT WITH IN REACH AND NOTHING ELSE NEEDED AT THIS TIME.
--- NOTE | 2025-02-10 19:15 | NUR ---
REPORT RECEIVED FROM RICKIE PLATT. PT LAYINGIN BED WITH EYES OPEN VISITING WITH FAMILY X2. DRESSING IN TACT PINPOINT DRAINAGE, PATIENT DENIES PAIN ON PALPATION AND STATED PROTONIX RELIVED HICCUPS. IVF RUNNING WITHOUT DIFFICULTY. NO OTHER NEEDS IDENTIFIED AT THIS TIME, CALL LIGHT IN REACH.
--- NOTE | 2025-02-10 22:21 | NUR ---
ASSESSMENT COMPLETE, NEW IVF BAG HUNG, LW IV DISCONTINUED D/T REDNESS AT THE SITE. IV CATH TIP INTACT. PATIENT TOLERATED WELL. PATIENT DENIES ANY NEEDS, RESPIRATIONS EVEN AND UNLABORED. CALL LIGHT IN REACH
--- NOTE | 2025-02-10 23:29 | NUR ---
ROUNDED ON PATIENT. PATIENT LAYING ON BACK IN BED WITH EYES CLOSED, RESPIRATIONS EVEN AND UNLABORED. IVF INFUSING WITHOUT DIFFICULTY. NO NEEDS IDENTIFIED AT THIS TIME, CALL LIGHT IN REACH.
--- NOTE | 2025-02-11 01:39 | NUR ---
ROUNDED ON PATIENT, PATIENT RESTING WITH EYES CLOSED, RESPIRATIONS EVEN AND UNLABORED. NO NEEDS IDENTIFIED, CALL LIGHT IN REACH
--- NOTE | 2025-02-11 02:21 | NUR ---
ROUNDED ON PATIENT. PATIENT RESTING ON BACK IN BED WITH EYES CLOSED, RESPIRATIONS EVEN AND UNLABORED. IVF INFUSING WITHOUT DIFFICULTY, NO NEEDS IDENDITIFED, CALL LIGHT IN REACH.
--- NOTE | 2025-02-11 02:36 | NUR ---
ANSWERED CALL LIGHT FOR ASSISTANCE TO USE THE URINAL. PATIENT ABLE TO STAND AT BEDSIDE WITH FWW. 1 PA INTO BED. OUTPUT MEASURED. BEDSIDE TABLE WITHIN REACH, NO NEEDS IDENTIFIED, CALL LIGHT IN REACH.
[2025-02-11 04:48] VITALS: BP 147/63
[2025-02-11 05:34] VITALS: BP 147/63
--- NOTE | 2025-02-11 06:12 | NUR ---
ROUNDED ON PATIENT, PATIENT RESTING IN BED WITH EYES CLOSED, RESPIRATIONS EVEN AND UNLABORED. PATIENT EASILY AROUSED FOR FOCUSED ASSESSMENT ON WOUND. DRESSING WAS IN TACT, DRY, NO CHANGE WITH PINPOINT DRAINAGE. PATIENT GIVEN WATER, IVF INFUSING WITHOUT DIFFICULTY, NO OTHER NEEDS IDENTIFIED, CALL LIGHT IN REACH.
--- NOTE | 2025-02-11 08:26 | NUR ---
PT ASSISTED BY FREEZER ASSISTANT UP TO CHAIR WITH FWW, GRANDDAUGHTER PRESENT IN THE ROOM THIS MORNING. CURTAINS TO WINDOW OPENED. PT TRAY SETUP. IV FLUIDS INFUSING, IV ABX STARTED. PT DENIES PAIN/NAUSEA, BT+. PT EXPRESSES HIS DESIRE TO GO HOME TODAY. INFORMED PT WE WOULD LIKE TO WALK THE HALLWAY THIS MORNING AFTER BREAKFAST, VERBALIZES UNDERSTANDING. NO CONCERNS AT THIS TIME, CALL LIGHT WITHIN REACH.
--- NOTE | 2025-02-11 09:50 | NUR ---
THIS RN ASSISTED PATIENT OUT OF CHAIR AND WE AMBULATED WITH FWW FULL LAP AROUND THE NURSES STATIONS. PATIENT TOLERATED WELL, REPORTS A SMALL AMOUNT OF SOB BUT SATS MAINTAINED >90%. PT DENIES PAIN/NAUSEA WAS ABLE TO TOLERATED WITH A FAIRLY STEADY GAIT USING THE WALKER. PT STATES HAS A WALKER AT HOME ALREADY. GRANDDAUGHTER REMAINS IN THE ROOM. [place] PRESENT TO [facility] AT THIS TIME. PT DENIES ANY NEEDS, ASSISTED BACK INTO CHAIR, CALL LIGHT WITHIN REACH. ALL PT CARE NEEDS MET AT THIS TIME.
[2025-02-11 10:10] VITALS: BP 139/78
--- NOTE | 2025-02-11 10:14 | NUR ---
PT SITTING IN CHAIR, REQUESTED BY RN. ROOM PICKED UP AND TRASH REMOVED. DAUGHTER IN ROOM WITH PT. PT HAS CALL LIGHT WITHIN REACH AND FRESH WATER, NO ICE NEAR HIM. PT REPORTS NEEDING NOTHING MORE AT THIS TIME.
[2025-02-11 10:32] VITALS: BP 139/78
[2025-02-11] MEDS ORDERED: ACETAMINOPHEN500 MG PO (12:56)
[2025-02-11 14:43] VITALS: BP 154/89
--- NOTE | 2025-02-11 14:48 | NUR ---
PT READY TO GO HOME. RN CAME IN TO REMOVE IV AND GIVE DC INSTRUCTIONS. GRANDDAUGHTER IN ROOM.
--- NOTE | 2025-02-12 13:51 | DS ---
[facility] [address], [place] [address] Signed ADMISSION DATE: 02/07/2025 DISCHARGE DATE: 02/11/2025 REASON FOR ADMISSION: Gastric outlet obstruction for operative relief. HISTORY: This 89-year-old man is a patient of Mary Augustine at [facility] and is a [employer] member. He is known to have metastatic prostate cancer to bone. He is a patient of Dr. Daniel also. He was referred with issues of anemia, underwent colonoscopy, which was normal as well as upper endoscopy on January 31, 2025. He is found to have no evidence of actual neoplasm esophagus, stomach or elsewhere, but did have extremely tight pyloric stenosis and retained food in the stomach. Balloon dilation 18 mm with a PET balloon dilator at 6 atmosphere pressure failed to dilate the stenosis enough to allow passage of the endoscope. A glimpse of the duodenal bulb was noted and it was normal. Biopsies were taken showing no evidence of malignancy. Given his significant pyloric stenosis, he is admitted at this time to undergo either pyloroplasty or gastrojejunal anastomosis depending on operative findings. PERTINENT PHYSICAL EXAMINATION: GENERAL: This is a tall moderately dark-skinned man, who look to be in no acute distress. NECK: Trachea is midline. CHEST: Clear. HEART: Regular without murmur. ABDOMEN: Soft. There is no palpable mass. He had no ascites. EXTREMITIES: Show no clubbing, cyanosis, or edema. HOSPITAL COURSE: On February 07, 2025, the patient underwent laparotomy for his gastric outlet obstruction and was found to have a dense ring of fibrosis at the pylorus itself, but no scarring or other problem in the more proximal stomach or in the duodenum otherwise. On that basis, he underwent Heineke-Mikulicz pyloroplasty. His postoperative course was impressively benign. Nasogastric tube was left in for 24 hours for him to regain gastric function. He was begun on a full liquid diet and ultimately transitioned to a regular diet, which he tolerated well. By the day of discharge, he is ambulating well, tolerating a solid diet and having minimal incisional pain. Electronically Signed By: PK PALENCIA MD 02/12/25 1351 PATIENT NAME: ERWIN HOROWITZ DISCHARGE SUMMARY DATE OF : 39 REPORT #: [id number] PHYSICIAN: PK PALENCIA MD PCP: ROSSY ALAMO MD REPORT IS CONFIDENTIAL AND NOT TO BE RELEASED WITHOUT AUTHORIZATION [facility] [address], [place] [address] Signed DISCHARGE MEDICATIONS: Will include: 1. Tylenol 1000 mg p.o. q.6 hours as needed for pain, #30 (500 mg tablets). 2. Continued use of aspirin enteric-coated 81 mg daily. 3. Entresto 49-51 one tablet p.o. b.i.d. 4. Triamcinolone cream for rash. 5. Saliva substitution (combination #9 Biotene) one cap daily. 6. Carboxymethylcellulose 1 to 2 drops each eye as needed for dry eyes. 7. Degarelix 80 mg subcutaneously monthly. 8. Omeprazole 20 mg two tablets p.o. daily. FOLLOWUP PLAN: He will return to see me in approximately a month. He will call on Thursday to set the appointment. He is permitted to shower and allow water to get the Steri-Strips as necessary. He should lift no more than 20 pounds for four weeks total following the operation. MD NICKY Redman/KRISL /[id number] cc: Mary Augustine Copies: MARY AUGUSTINE PAC ~ Electronically Signed By: PK PALENCIA MD 02/12/25 1351 PATIENT NAME: ERWIN HOROWITZ DISCHARGE SUMMARY DATE OF : 39 REPORT #: [id number] PHYSICIAN: PK PALENCIA MD PCP: ROSSY ALAMO MD REPORT IS CONFIDENTIAL AND NOT TO BE RELEASED WITHOUT AUTHORIZATION
== END 2025-02-11 14:57 | disposition home or self-care (01) | DRG 327 ==
LOC: DSVR 02-07 08:56 → MS 02-07 08:56 → DSVR 02-07 10:15 → MS 02-07 16:07
PROVIDERS: Nurse Anesthetist, Certified Registered; ADMIT Surgery; ATTEND Surgery
PROC: 3E03329 Introduction of Other Anti-infective into Peripheral Vein, Percutaneous Approach (ICD-10-PCS; 2025-02-07)
PROC: 0DQ70ZZ Repair Stomach, Pylorus, Open Approach (ICD-10-PCS; principal; 2025-02-07 10:15)
DX: K31.1 Adult hypertrophic pyloric stenosis (principal); C79.49 Secondary malignant neoplasm of other parts of nervous system; C79.51 Secondary malignant neoplasm of bone; K57.12 Diverticulitis of small intestine without perforation or abscess without bleeding; C61 Malignant neoplasm of prostate; E78.2 Mixed hyperlipidemia; D50.9 Iron deficiency anemia, unspecified; I11.0 Hypertensive heart disease with heart failure; I50.9 Heart failure, unspecified; Z98.42 Cataract extraction status, left eye; Z90.49 Acquired absence of other specified parts of digestive tract; Z98.41 Cataract extraction status, right eye; Z79.82 Long term (current) use of aspirin; Z79.899 Other long term (current) drug therapy; Z79.2 Long term (current) use of antibiotics
CPT/HCPCS: 00790; 36415; 76942; 80048; 85025; 86850; 86900; 86901; 94762; A9270; J0131; J0688; J1100; J1450; J1644; J2003; J2405; J2704; J2795; J3010; J3490; J7121